=== PATIENT | female | born 1995 | race Asian ===

== ENCOUNTER 2023-01-10 11:14 | Emergency (ER) | payer OTHER, SELFPAY ==
[2023-01-10 11:18] VITALS: BP 126/81; PULSE 76; RESP 18; TEMP 36.6; O2SAT 100; BMI 34.4
--- NOTE | 2023-01-10 11:23 | DI.RAD.S_ITS ---
PROCEDURE: XR CHEST 1V INDICATIONS: chest pain TECHNIQUE: One view of the chest was acquired. COMPARISON: None. FINDINGS: Surgical changes and devices: None. Lungs and pleura: Lungs are clear. No pleural effusions or pneumothorax. Mediastinum: Mediastinal contours appear normal. Heart size is normal. Bones and chest wall: No suspicious bony lesions. Overlying soft tissues appear unremarkable. IMPRESSION: No acute cardiopulmonary abnormality. Dictated by: Bethel Guzman M.D. on 01/10/2023 at 12:42 Approved by: Bethel Guzman M.D. on 01/10/2023 at 12:46
[2023-01-10 11:50] LABS: Add Manual Diff / Slide Review NO; Basophils Absolute Auto 100 /uL (0-100); Basophils Percent Auto 0.9 % (0-2); Eosinophils Absolute Auto 200 /uL (0-450); Eosinophils Percent Auto 2.9 % (2-4); Hematocrit 41.1 % (36-46); Hemoglobin 13.7 g/dL (12.0-16.0); Lymphocytes Absolute Auto 2800 /uL (1100-4500); Lymphocytes Percent Auto 32.9 % (25-40); Mean Corpuscular HGB Conc 33.4 % (30-36); Mean Corpuscular Hemoglobin 29.1 PG (26-34); Mean Corpuscular Volume 87.1 fL (80-100); Monocytes Absolute Auto 500 /uL (0-900); Monocytes Percent Auto 5.5 % (3-14); Neutrophils Absolute Auto 4900 /uL (1500-7000); Neutrophils Percent Auto 57.8 % (50-75); Platelet Count 327 X10^3/uL (150-400); Red Blood Cell Count 4.71 X10^6/uL (4.0-5.2); Red Cell Distribution Width 13.3 % (11.6-14.8); White Blood Cell Count 8.5 X10^3/uL (4.5-11.0)
[2023-01-10 11:55] LABS: INR 1.1 (0.9-1.3); Prothrombin Time 12.5 SECONDS (10.1-12.7)
[2023-01-10 11:57] LABS: PTT Partial Thromboplastin Tim 34 SECONDS (26-36)
[2023-01-10 12:01] LABS: Alanine Aminotransferase 56 IU/L (<35); Albumin 4.7 g/dL (3.5-5.0); Albumin Globulin Ratio 1.3 (1.0-2.8); Alkaline Phosphatase 86 U/L (38-126); Aspartate Aminotransferase 41 IU/L (14-36); BUN Creatinine Ratio 13.6 (6-22); Bilirubin Total 0.7 mg/dL (0.2-1.3); Blood Urea Nitrogen 8 mg/dL (7-17); Calcium 9.1 mg/dL (8.4-10.2); Carbon Dioxide 27 mmol/L (22-32); Chloride 102 mmol/L (98-107); Creatine Kinase 169 U/L (30-135); Estimated Glomerular Filt Rate > 60 mL/min (>60); Globulin 3.7 g/dL (1.7-4.1); Glucose 95 mg/dL (70-100); HEMOLYSIS < 15 (0-50); Lipase 73 U/L (23-300); Magnesium 2.3 mg/dL (1.6-2.3); Sodium 138 mmol/L (137-145); Total Protein 8.4 g/dL (6.3-8.2)
[2023-01-10 12:11] LABS: Troponin I < 0.012 ng/mL (0.01-0.034)
[2023-01-10 12:54] VITALS: BP 122/62; PULSE 81; O2SAT 98
[2023-01-10 13:39] LABS: Thyroid Stimulating Hormone 0.499 uIU/mL (0.47-4.68)
[2023-01-10 14:10] LABS: Free T4, Direct Thyroxine 1.16 ng/dL (0.78-2.19)
[2023-01-10 14:23] VITALS: BP 113/64; PULSE 75; O2SAT 100
--- NOTE | 2023-01-10 14:36 | ED.CHESTPAIN ---
HPI - Chest Pain <Shereen Rosales PA-C - Last Filed: 01/10/23 14:43> General Chief Complaint: Chest Pain Stated Complaint: Chest pain, heart issues, sent from PCP Time Seen by Provider: 01/10/23 12:46 Source: patient Mode of arrival: Ambulatory Limitations: no limitations History of Present Illness HPI narrative: 27-year-old female with past medical history hyperthyroidism, anxiety, depression presents to the ED with 2 weeks of chest heaviness and palpitations. Patient states she has a history of hyperthyroidism for which she is on metoprolol, methimazole. Patient is also on Zoloft for anxiety and depression. Patient is compliant with her medications. Patient was seen by her PCP this morning, was sent to the ED for further evaluation. Patient denies fever, chills, shortness of breath, cough, nausea, vomiting, lightheadedness, dizziness, syncope. Related Data Home Medications Medication Instructions Recorded Confirmed loratadine 10 mg tablet (Claritin) 10 mg PO QDAY ##0 08/08/17 norethindrone acetate 5 mg tablet 5 mg PO QDAY ##0 08/08/17 ranitidine HCl 150 mg tablet PO QDAY ##0 08/08/17 (Zantac) Previous Rx's Medication Instructions Recorded hydrocodone 5 mg-acetaminophen 325 1 tab PO Q4HP PRN #10 tabs 08/08/17 mg tablet ([place]) hydroxyzine HCl 25 mg tablet 25 mg PO TID PRN anxiety 4 days 01/10/23 #14 tabs Allergies Allergy/AdvReac Type Severity Reaction Status Date / Time ibuprofen [IBUPROFEN] Allergy Unknown HIVES Unverified 09/13/17 12:51 Review of Systems <Shereen Rosales PA-C - Last Filed: 01/10/23 14:43> Review of Systems ROS Unobtainable: All systems reviewed & are unremarkable except as noted in HPI and below Constitutional Constitutional: Denies chills, Denies fatigue, Denies fever(s), Denies frequent falls, Denies lethargy and Denies weakness Eyes Eyes: Denies change in vision, Denies eye discharge, Denies irritation and Denies loss of vision ENT Ears, Nose, Mouth, and Throat: Denies change in voice, Denies dizziness, Denies neck pain, Denies sore throat and Denies throat swelling Cardiovascular Cardiovascular: Reports chest pain, Denies irregular heart rhythm, Denies lightheadedness, Reports palpitations, Denies dyspnea, Denies dyspnea on exertion and Denies orthopnea Respiratory Respiratory: Denies cough, Denies dyspnea, Denies dyspnea on exertion and Denies wheezing Gastrointestinal Gastrointestinal: Denies abdominal pain, Denies change in bowel habits, Denies diarrhea, Denies nausea and Denies vomiting Genitourinary Genitourinary: Denies hematuria, Denies flank pain, Denies urinary incontinence and Denies urinary urgency Musculoskeletal Musculoskeletal: Denies back pain, Denies muscle weakness, Denies neck pain, Denies numbness and Denies tingling Integumentary/Breasts Skin/Breast: Denies pruritus, Denies erythema, Denies rash and Denies wounds Neurologic Neurologic: Denies behavioral changes, Denies confusion, Denies dizziness, Denies frequent falls, Denies loss of vision, Denies numbness, Denies tingling and Denies weakness Psychiatric Psychiatric: Denies anxiety, Denies behavioral changes, Denies confusion, Denies depression, Denies homicidal ideation and Denies suicidal ideation Endocrine Endocrine: Denies fatigue, Denies flushing and Reports palpitations Hematologic/Lymphatic Hematologic/Lymphatic: Denies easy bruising Allergic/Immunologic Allergic/Immunologic: Denies urticaria, Denies throat swelling and Denies wheezing Patient History <Shereen Rosales PA-C - Last Filed: 01/10/23 14:43> Social History Smoking Status: Current some day smoker Smoking Status: Current some day smoker tobacco type: vaping Substance Use Type: does not use Exam <Shereen Rosales PA-C - Last Filed: 01/10/23 14:43> Narrative Exam Narrative: Const General:?cooperative, healthy appearing and comfortable [facility] Head:?normal to inspection Ears:?hearing grossly normal bilaterally Nose:?external nose normal Face and sinus:?normal facial exam and sinuses nontender Mouth:?oral mucosae normal Throat:?posterior oropharynx normal Eyes General:?appearance normal, both eyes and all related structures Neck Neck:?normal visual inspection and no lymphadenopathy noted Resp Effort & Inspection:?normal respiratory effort Auscultation:?clear to auscultation bilaterally Cardio Rate:?regular rate Rhythm:?regular rhythm Neuro General:?patient alert, patient awake and patient oriented x3 Initial Vital Signs Initial Vital Signs: Vital Signs Temperature 98 F 01/10/23 11:18 Pulse Rate 76 01/10/23 11:18 Respiratory Rate 18 01/10/23 11:18 Blood Pressure 126/81 01/10/23 11:18 Pulse Oximetry 100 01/10/23 11:18 Oxygen Delivery Method Room Air 01/10/23 11:18 <DO Jonathan Jc Last Filed: 01/12/23 08:14> Initial Vital Signs Initial Vital Signs: Vital Signs Temperature 98 F 01/10/23 11:18 Pulse Rate 76 01/10/23 11:18 Respiratory Rate 18 01/10/23 11:18 Blood Pressure 126/81 01/10/23 11:18 Pulse Oximetry 100 01/10/23 11:18 Oxygen Delivery Method Room Air 01/10/23 11:18 Course <MY Hammer Last Filed: 01/10/23 14:43> Orders Ordered: ED Orders 01/10/23 11:23 XR chest 1V Stat 01/10/23 11:32 EKG-12 Lead Stat 01/10/23 11:37 Complete Blood Count AUTO DIFF Stat Comprehensive Metabolic Panel Stat Free T4, Direct Thyroxine Stat Lipase Stat Magnesium Stat PTT Partial Thromboplastin Nino Stat Prothrombin Time INR Stat TSH [Thyroid Stimulating Hormone] Stat Troponin & CK Cardiac Panel Stat Vital Signs Vital signs: Vital Signs - 8 hr 01/10/23 11:18 01/10/23 12:54 01/10/23 14:23 Temperature 98 F Pulse Rate 76 81 75 Respiratory Rate 18 Blood Pressure 126/81 122/62 113/64 Pulse Oximetry 100 98 100 Oxygen Delivery Method Room Air Room Air Room Air <DO Jonathan Jc Last Filed: 01/12/23 08:14> Orders Ordered: ED Orders 01/10/23 11:23 XR chest 1V Stat 01/10/23 11:32 EKG-12 Lead Stat 01/10/23 11:37 Complete Blood Count AUTO DIFF Stat Comprehensive Metabolic Panel Stat Free T4, Direct Thyroxine Stat Lipase Stat Magnesium Stat PTT Partial Thromboplastin Nino Stat Prothrombin Time INR Stat TSH [Thyroid Stimulating Hormone] Stat Troponin & CK Cardiac Panel Stat Vital Signs Vital signs: Vital Signs - 8 hr 01/10/23 11:18 01/10/23 12:54 08/08/23 14:23 Temperature 98 F Pulse Rate 76 81 75 Respiratory Rate 18 Blood Pressure 126/81 122/62 113/64 Pulse Oximetry 100 98 100 Oxygen Delivery Method Room Air Room Air Room Air MDM - Chest Pain <Shereen Rosales PA-C - Last Filed: 01/10/23 14:43> Lab Data 01/10/23 11:37 01/10/23 11:37 Labs: Lab Results 01/10/23 01/10/23 01/10/23 Range/Units 11:37 11:37 11:37 WBC 8.5 (4.5-11.0) X10^3/uL RBC 4.71 (4.0-5.2) X10^6/uL Hgb 13.7 (12.0-16.0) g/dL Hct 41.1 (36-46) % MCV 87.1 (80-100) fL MCH 29.1 (26-34) PG MCHC 33.4 (30-36) % RDW 13.3 (11.6-14.8) % Plt Count 327 (150-400) X10^3/uL Neut % (Auto) 57.8 (50-75) % Lymph % (Auto) 32.9 (25-40) % [place] % (Auto) 5.5 (3-14) % Eos % (Auto) 2.9 (2-4) % Baso % (Auto) 0.9 (0-2) % Neut # (Auto) 4900 (4349-1489) /uL Lymph # (Auto) 2800 (4747-6241) /uL [place] # (Auto) 500 (0-900) /uL Eos # (Auto) 200 (0-450) /uL Baso # (Auto) 100 (0-100) /uL PT 12.5 (10.1-12.7) SECONDS INR 1.1 (0.9-1.3) APTT 34 (26-36) SECONDS Sodium 138 (137-145) mmol/L Potassium 4.0 (3.4-5.1) mmol/L Chloride 102 (98-107) mmol/L Carbon Dioxide 27 (22-32) mmol/L BUN 8 (7-17) mg/dL Creatinine 0.59 (0.52-1.04) mg/dL Estimated GFR > 60 (>60) mL/min BUN/Creatinine Ratio 13.6 (6-22) Glucose 95 (70-100) mg/dL Calcium 9.1 (8.4-10.2) mg/dL Magnesium 2.3 (1.6-2.3) mg/dL Total Bilirubin 0.7 (0.2-1.3) mg/dL AST 41 H (14-36) IU/L ALT 56 H (<35) IU/L Alkaline Phosphatase 86 (38-126) U/L Total Creatine Kinase 169 H (30-135) U/L Troponin I < 0.012 (0.01-0.034) ng/mL Total Protein 8.4 H (6.3-8.2) g/dL Albumin 4.7 (3.5-5.0) g/dL Globulin 3.7 (1.7-4.1) g/dL Albumin/Globulin Ratio 1.3 (1.0-2.8) Lipase 73 (23-300) U/L TSH (0.47-4.68) uIU/mL Free T4 (0.78-2.19) ng/dL /01/25 Range/Units 11:37 WBC (4.5-11.0) X10^3/uL RBC (4.0-5.2) X10^6/uL Hgb (12.0-16.0) g/dL Hct (36-46) % MCV (80-100) fL MCH (26-34) PG MCHC (30-36) % RDW (11.6-14.8) % Plt Count (150-400) X10^3/uL Neut % (Auto) (50-75) % Lymph % (Auto) (25-40) % [place] % (Auto) (3-14) % Eos % (Auto) (2-4) % Baso % (Auto) (0-2) % Neut # (Auto) (0399-8783) /uL Lymph # (Auto) (8021-7278) /uL [place] # (Auto) (0-900) /uL Eos # (Auto) (0-450) /uL Baso # (Auto) (0-100) /uL PT (10.1-12.7) SECONDS INR (0.9-1.3) APTT (26-36) SECONDS Sodium (137-145) mmol/L Potassium (3.4-5.1) mmol/L Chloride (98-107) mmol/L Carbon Dioxide (22-32) mmol/L BUN (7-17) mg/dL Creatinine (0.52-1.04) mg/dL Estimated GFR (>60) mL/min BUN/Creatinine Ratio (6-22) Glucose (70-100) mg/dL Calcium (8.4-10.2) mg/dL Magnesium (1.6-2.3) mg/dL Total Bilirubin (0.2-1.3) mg/dL AST (14-36) IU/L ALT (<35) IU/L Alkaline Phosphatase (38-126) U/L Total Creatine Kinase (30-135) U/L Troponin I (0.01-0.034) ng/mL Total Protein (6.3-8.2) g/dL Albumin (3.5-5.0) g/dL Globulin (1.7-4.1) g/dL Albumin/Globulin Ratio (1.0-2.8) Lipase (23-300) U/L TSH 0.499 (0.47-4.68) uIU/mL Free T4 1.16 (0.78-2.19) ng/dL Point of Care Testing Test Results Negative Urine Dip Bedside Urine Glucose Negative Bedside Urine Bilirubin - Negative Bedside Urine Ketone - Negative Urine Specific [place] 1.020 Bedside Urine Occult Blood ++ Bedside Urine pH 6.0 Bedside Urine Protein - Negative Bedside Urine Urobilinogen - Negative Bedside Urine Nitrite - Negative Bedside Urine Leukocytes +/- 15 Esterase MDM Narrative Medical decision making narrative: 27-year-old female with past medical history hyperthyroidism, anxiety, depression presents to the ED with 2 weeks of chest heaviness and palpitations. EKG, chest x-ray, labs, troponin, TSH, T4 within normal limits. EKG shows normal sinus rhythm with sinus arrhythmia. Vitals within normal limits. Patient's symptoms most likely due to a flare-up of anxiety or acid reflux. Recommend a trial of Pepcid AC, hydroxyzine. Recommend follow-up with PCP as soon as possible for further evaluation. ED return precautions were discussed with patient. Patient verbalized understanding. Medical records reviewed: Yes <Tatiana Flores, DO - Last Filed: 01/12/23 08:14> Lab Data Labs: Lab Results 01/10/23 01/10/23 01/10/23 Range/Units 11:37 11:37 11:37 WBC 8.5 (4.5-11.0) X10^3/uL RBC 4.71 (4.0-5.2) X10^6/uL Hgb 13.7 (12.0-16.0) g/dL Hct 41.1 (36-46) % MCV 87.1 (80-100) fL MCH 29.1 (26-34) PG MCHC 33.4 (30-36) % RDW 13.3 (11.6-14.8) % Plt Count 327 (150-400) X10^3/uL Neut % (Auto) 57.8 (50-75) % Lymph % (Auto) 32.9 (25-40) % [place] % (Auto) 5.5 (3-14) % Eos % (Auto) 2.9 (2-4) % Baso % (Auto) 0.9 (0-2) % Neut # (Auto) 4900 (0801-9462) /uL Lymph # (Auto) 2800 (4448-5740) /uL [place] # (Auto) 500 (0-900) /uL Eos # (Auto) 200 (0-450) /uL Baso # (Auto) 100 (0-100) /uL PT 12.5 (10.1-12.7) SECONDS INR 1.1 (0.9-1.3) APTT 34 (26-36) SECONDS Sodium 138 (137-145) mmol/L Potassium 4.0 (3.4-5.1) mmol/L Chloride 102 (98-107) mmol/L Carbon Dioxide 27 (22-32) mmol/L BUN 8 (7-17) mg/dL Creatinine 0.59 (0.52-1.04) mg/dL Estimated GFR > 60 (>60) mL/min BUN/Creatinine Ratio 13.6 (6-22) Glucose 95 (70-100) mg/dL Calcium 9.1 (8.4-10.2) mg/dL Magnesium 2.3 (1.6-2.3) mg/dL Total Bilirubin 0.7 (0.2-1.3) mg/dL AST 41 H (14-36) IU/L ALT 56 H (<35) IU/L Alkaline Phosphatase 86 (38-126) U/L Total Creatine Kinase 169 H (30-135) U/L Troponin I < 0.012 (0.01-0.034) ng/mL Total Protein 8.4 H (6.3-8.2) g/dL Albumin 4.7 (3.5-5.0) g/dL Globulin 3.7 (1.7-4.1) g/dL Albumin/Globulin Ratio 1.3 (1.0-2.8) Lipase 73 (23-300) U/L TSH (0.47-4.68) uIU/mL Free T4 (0.78-2.19) ng/dL 01/10/23 Range/Units 11:37 WBC (4.5-11.0) X10^3/uL RBC (4.0-5.2) X10^6/uL Hgb (12.0-16.0) g/dL Hct (36-46) % MCV (80-100) fL MCH (26-34) PG MCHC (30-36) % RDW (11.6-14.8) % Plt Count (150-400) X10^3/uL Neut % (Auto) (50-75) % Lymph % (Auto) (25-40) % [place] % (Auto) (3-14) % Eos % (Auto) (2-4) % Baso % (Auto) (0-2) % Neut # (Auto) (5335-3107) /uL Lymph # (Auto) (6366-5974) /uL [place] # (Auto) (0-900) /uL Eos # (Auto) (0-450) /uL Baso # (Auto) (0-100) /uL PT (10.1-12.7) SECONDS INR (0.9-1.3) APTT (26-36) SECONDS Sodium (137-145) mmol/L Potassium (3.4-5.1) mmol/L Chloride (98-107) mmol/L Carbon Dioxide (22-32) mmol/L BUN (7-17) mg/dL Creatinine (0.52-1.04) mg/dL Estimated GFR (>60) mL/min BUN/Creatinine Ratio (6-22) Glucose (70-100) mg/dL Calcium (8.4-10.2) mg/dL Magnesium (1.6-2.3) mg/dL Total Bilirubin (0.2-1.3) mg/dL AST (14-36) IU/L ALT (<35) IU/L Alkaline Phosphatase (38-126) U/L Total Creatine Kinase (30-135) U/L Troponin I (0.01-0.034) ng/mL Total Protein (6.3-8.2) g/dL Albumin (3.5-5.0) g/dL Globulin (1.7-4.1) g/dL Albumin/Globulin Ratio (1.0-2.8) Lipase (23-300) U/L TSH 0.499 (0.47-4.68) uIU/mL Free T4 1.16 (0.78-2.19) ng/dL Point of Care Testing Test Results Negative Urine Dip Bedside Urine Glucose Negative Bedside Urine Bilirubin - Negative Bedside Urine Ketone - Negative Urine Specific [place] 1.020 Bedside Urine Occult Blood ++ Bedside Urine pH 6.0 Bedside Urine Protein - Negative Bedside Urine Urobilinogen - Negative Bedside Urine Nitrite - Negative Bedside Urine Leukocytes +/- 15 Esterase Discharge Plan Departure Patient Disposition: Home Clinical Impression: Atypical chest pain Instructions: DI for Atypical Chest Pain Activity Restrictions/Additional Instructions: You were evaluated in the ED today for chest tightness. Your EKG, chest x-ray, labs, thyroid tests were normal. It is possible that your symptoms might be caused due to either acid reflux or anxiety. You may trial Pepcid AC twice daily for the next 2-4 weeks. You may also try hydroxyzine for anxiety for the next few days. Please follow-up with your PCP as soon as possible. Return to the ED if you have worsening symptoms, chest pain, shortness of breath. Prescriptions: New hydroxyzine HCl 25 mg tablet 25 mg PO TID PRN (Reason: anxiety) 4 Days Qty: 14 0RF No Action ranitidine HCl [Zantac] 150 mg tablet PO QDAY Qty: 0 loratadine [Claritin] 10 MG tablet 10 mg PO QDAY Qty: 0 norethindrone acetate 5 MG tablet 5 mg PO QDAY Qty: 0 hydrocodone-acetaminophen [[place]] 5 MG/325 MG tablet 1 tab PO Q4HP PRNQty: 10 0RF Stand Alone Forms: Patient Portal/API <Tatiana Flores DO - Last Filed: 01/12/23 08:14> Cosign ED Attending Costrature Attestation: I was immediately available in the department for consultation. Documentation has been reviewed.
== END 2023-01-10 14:40 | disposition home or self-care (01) ==
PROVIDERS: Emergency Medicine; Emergency Provider Student in an Organized Health Care Education/Training Program; Family Provider General Practice
DX: R07.89 Other chest pain (principal); R00.2 Palpitations
CPT/HCPCS: 36415; 71045; 80053; 81003; 81025; 82550; 83690; 83735; 84439; 84443; 84484; 85025; 85610; 85730; 93005; 93010; 99282; 99284

== ENCOUNTER 2024-08-06 17:28 | Emergency (ER) | payer OTHER, SELFPAY ==
[2024-08-06 17:32] VITALS: BP 117/57; PULSE 76; RESP 16; TEMP 36.6; O2SAT 99; BMI 29.9
--- NOTE | 2024-08-06 18:00 | ED.URI ---
HPI - URI/Sore Throat General Chief Complaint: Upper Respiratory Symptoms Stated Complaint: SKYfunmilayo Time Seen by Provider: 08/06/24 17:46 History of Present Illness HPI Narrative: 29-year-old female with past medical history hyperthyroidism, anxiety, depression, migraines presents to the ED with 3 days of fatigue, headache, occasional cough, nausea, vomiting. Patient had 2 episodes of vomiting earlier today. Patient has a history of migraine for which did takes sumatriptan. Patient did take some sumatriptan earlier today without any relief. Patient states that her doctor had called her to let her know that her thyroid numbers were higher, for which she is following up with her supervisor quilting. No fever, chills, chest pain, shortness of breath, lightheadedness, dizziness, syncope. Related Data Home Medications Medication Instructions Recorded Confirmed loratadine 10 mg tablet (Claritin) 10 mg PO QDAY ##0 08/08/17 norethindrone acetate 5 mg tablet 5 mg PO QDAY ##0 08/08/17 ranitidine HCl 150 mg tablet PO QDAY ##0 08/08/17 (Zantac) Previous Rx's Medication Instructions Recorded hydrocodone 5 mg-acetaminophen 325 1 tab PO Q4HP PRN #10 tabs 08/08/17 mg tablet ([place]) Allergies Allergy/AdvReac Type Severity Reaction Status Date / Time ibuprofen [IBUPROFEN] Allergy Unknown HIVES Unverified 09/13/17 12:51 Review of Systems Constitutional Constitutional: Denies chills, Denies fatigue, Denies fever(s), Denies frequent falls, Reports headache(s), Denies lethargy and Reports weakness Eyes Eyes: Denies change in vision, Denies eye discharge, Denies irritation and Denies loss of vision ENT Ears, Nose, Mouth, and Throat: Denies change in voice, Denies dizziness, Reports headache(s), Denies neck pain, Denies sore throat and Denies throat swelling Cardiovascular Cardiovascular: Denies chest pain, Denies irregular heart rhythm, Denies lightheadedness, Denies palpitations, Denies dyspnea, Denies dyspnea on exertion and Denies orthopnea Respiratory Respiratory: Reports cough, Denies dyspnea, Denies dyspnea on exertion and Denies wheezing Gastrointestinal Gastrointestinal: Denies abdominal pain, Denies change in bowel habits, Denies diarrhea, Reports nausea and Reports vomiting Musculoskeletal Musculoskeletal: Denies neck pain and Denies numbness Integumentary/Breasts Skin/Breast: Denies pruritus, Denies erythema, Denies rash and Denies wounds Neurologic Neurologic: Denies behavioral changes, Denies confusion, Denies dizziness, Denies frequent falls, Reports headache(s), Denies loss of vision, Denies numbness and Reports weakness Psychiatric Psychiatric: Denies anxiety, Denies behavioral changes, Denies confusion, Denies depression, Denies homicidal ideation and Denies suicidal ideation Endocrine Endocrine: Denies fatigue, Denies flushing and Denies palpitations Hematologic/Lymphatic Hematologic/Lymphatic: Denies easy bruising Allergic/Immunologic Allergic/Immunologic: Denies urticaria, Denies throat swelling and Denies wheezing Patient History Social History Smoking Status: Current some day smoker Smoking Status: Current some day smoker tobacco type: vaping Exam Narrative Exam Narrative: Const General:?cooperative, healthy appearing and comfortable [facility] Head:?normal to inspection Ears:?hearing grossly normal bilaterally Nose:?external nose normal Face and sinus:?normal facial exam and sinuses nontender Mouth:?oral mucosae normal Throat:?posterior oropharynx normal Eyes General:?appearance normal, both eyes and all related structures Neck Neck:?normal visual inspection and no lymphadenopathy noted Resp Effort & Inspection:?normal respiratory effort Auscultation:?clear to auscultation bilaterally Cardio Rate:?regular rate Rhythm:?regular rhythm Neuro General:?patient alert, patient awake and patient oriented x3 Initial Vital Signs Initial Vital Signs: Vital Signs Temperature 97.8 F 08/06/24 17:32 Pulse Rate 76 08/06/24 17:32 Respiratory Rate 16 08/06/24 17:32 Blood Pressure 117/57 L 08/06/24 17:32 Pulse Oximetry 99 08/06/24 17:32 Oxygen Delivery Method Room Air 08/06/24 17:32 Course Orders Ordered: ED Orders 08/06/24 17:59 Covid-19 + FLU A/B + RSV - PCR Stat Discontinued Medications Acetaminophen (Acetaminophen 325 Mg Tablet) 975 mg PO NOW ONE Stop: 08/06/24 17:57 Last Admin: 08/06/24 18:05 Dose: 975 mg Documented By: EDUARD Diphenhydramine HCl (Diphenhydramine 25 Mg Tablet) 25 mg PO NOW ONE Stop: 08/06/24 17:57 Last Admin: 08/06/24 18:05 Dose: 25 mg Documented By: EDUARD Metoclopramide HCl (Metoclopramide Hcl 5 Mg Tablet) 10 mg PO NOW ONE Stop: 08/06/24 17:57 Last Admin: 08/06/24 18:08 Dose: 10 mg Documented By: EDUARD Vital Signs Vital signs: Vital Signs - 8 hr 08/06/24 17:32 Temperature 97.8 F Pulse Rate 76 Respiratory Rate 16 Blood Pressure 117/57 L Pulse Oximetry 99 Oxygen Delivery Method Room Air MDM - URI/Sore Throat Lab Data Labs: Lab Results 08/06/24 Range/Units 17:59 SARS-CoV-2 (PCR) Negative (Negative) Influenza A (RT-PCR) Flu a negative (NEGATIVE) Influenza B (RT-PCR) Flu b negative (NEGATIVE) RSV (PCR) Negative (Negative) MDM Narrative Medical decision making narrative: 29-year-old female with past medical history hyperthyroidism, anxiety, depression, migraines presents to the ED with 3 days of fatigue, headache, occasional cough, nausea, vomiting. Concern for URI versus gastroenteritis versus migraine versus other. Patient is not exhibiting any signs or symptoms of thyroid storm. Will obtain respiratory panel. Will treat headache. Will reassess. Patient's symptoms improved with medications. Respiratory panel negative. Recommend continued supportive care. Recommend follow-up with PCP, supervisor quilting as soon as possible. ED return precautions discussed with patient. Patient verbalized understanding. Medical records reviewed: Yes Discharge Plan Departure Patient Disposition: Home Clinical Impression: Headache Qualifiers: Headache type: unspecified Headache chronicity pattern: acute headache Intractability: not intractable Qualified Code(s): R51.9 - Headache, unspecified Instructions: DI for Headache Activity Restrictions/Additional Instructions: You were evaluated in the ED today for a headache. Your symptoms improved with Reglan, Tylenol, Benadryl. We will call you if your respiratory panel is positive. Please stay well hydrated and continue to take Tylenol and sumatriptan for headaches. If you feel any upper respiratory symptoms, feel free to take any [id number] cough and cold medicines. Please follow-up with your PCP and supervisor quilting as soon as possible. Return to the ED if you have worsening symptoms Prescriptions: No Action ranitidine HCl [Zantac] 150 mg tablet PO QDAY Qty: 0 loratadine [Claritin] 10 MG tablet 10 mg PO QDAY Qty: 0 norethindrone acetate 5 MG tablet 5 mg PO QDAY Qty: 0 hydrocodone-acetaminophen [[place]] 5 MG/325 MG tablet 1 tab PO Q4HP PRNQty: 10 0RF Referrals: ProviderZoraida [Primary Care Provider] - Stand Alone Forms: Patient Portal/API/Survey
[2024-08-06] MEDS: diphenhydrAMINE 25 MG TABLET PO (18:05)
[2024-08-06] MEDS: ACETAMINOPHEN 325 MG TABLET 975 MG PO (18:05)
[2024-08-06] MEDS: METOCLOPRAMIDE HCL 5 MG TABLET 10 MG PO (18:08)
[2024-08-06 18:43] LABS: Influenza A - CEPHEID Flu A NEGATIVE (NEGATIVE); Influenza B - CEPHEID Flu B NEGATIVE (NEGATIVE); Respiratory Syncytial Virus Negative (Negative)
[2024-08-06 18:44] LABS: COVID-19 CEPHEID 4-PLEX PCR Negative (Negative)
[2024-08-06 18:57] VITALS: BP 116/55; PULSE 74; RESP 16; O2SAT 99
== END 2024-08-06 18:58 | disposition home or self-care (01) ==
PROVIDERS: Emergency Provider Student in an Organized Health Care Education/Training Program; Family Provider General Practice
DX: R51.9 Headache, unspecified (principal); R53.83 Other fatigue; R11.2 Nausea with vomiting, unspecified; R05.9 Cough, unspecified
CPT/HCPCS: 0241U; 99283

== ENCOUNTER 2024-10-16 10:28 | Emergency (ER) | payer OTHER, SELFPAY ==
[2024-10-16 10:32] VITALS: BP 130/68; PULSE 88; RESP 13; TEMP 36.5; O2SAT 99; BMI 30.5
[2024-10-16 10:35] VITALS: PULSE 88; O2SAT 99
[2024-10-16 10:36] VITALS: BP 130/68; PULSE 85; O2SAT 99
[2024-10-16 11:00] VITALS: BP 113/56; PULSE 84; O2SAT 98
--- NOTE | 2024-10-16 11:17 | ED_ITS ---
HPI - Nausea/Vomiting/Diarrhea <Carly Matthews PA-C - Last Filed: 10/16/24 14:06> General Chief complaint: Nausea/Vomiting/Diarrhea Stated complaint: Severe Nausea x 7 days Time Seen by Provider: 10/16/24 11:17 Source: patient Mode of arrival: Ambulatory History of Present Illness HPI Narrative: Ms. Will is a very pleasant , currently 7 weeks on progesterone, female with a past medical history of hyperthyroidism on PTU, endometriosis, anxiety/depression, 3 prior miscarriages who presents to the emergency department for nausea/vomiting in x1 week. Patient states over the last week she has been constantly nauseated with some epigastric discomfort that she describes as a ?cool? sensation and difficulty keeping down both fluids and solids. Patient states the nausea and vomiting is exacerbated by eating and drinking and also by moving around, and is improved by lying still. She denies having this severe nausea or vomiting with prior pregnancies. She is currently following with OBGYN Dr. Maury Reagan with [facility], they have prescribed her Unisom and B6 which has not been working and they are in the process of setting her up for scheduled Zofran and effusions but they recommend she come to the ER until this can be scheduled. She denies any abdominal pain, pelvic cramping, vaginal bleeding vaginal discharge, dysuria, hematuria, flank pain, shortness of breath, fevers, chills, sore throat, cough. She does report that her urine is dark however. She denies diarrhea or constipation but states she has not had a bowel movement in about 3 days because she has not been eating. Related Data Home Medications Medication Instructions Recorded Confirmed loratadine 10 mg tablet (Claritin) 10 mg PO QDAY ##0 08/08/17 norethindrone acetate 5 mg tablet 5 mg PO QDAY ##0 08/08/17 ranitidine HCl 150 mg tablet PO QDAY ##0 08/08/17 (Zantac) Previous Rx's Medication Instructions Recorded hydrocodone 5 mg-acetaminophen 325 1 tab PO Q4HP PRN #10 tabs 08/08/17 mg tablet ([place]) cephalexin 500 mg capsule 500 mg PO TID 4 days #12 caps 10/16/24 Allergies Allergy/AdvReac Type Severity Reaction Status Date / Time ibuprofen [IBUPROFEN] Allergy Unknown HIVES Verified 10/16/24 10:38 Review of Systems <Carly Matthews PA-C - Last Filed: 10/16/24 14:06> Review of Systems ROS Unobtainable: All systems reviewed & are unremarkable except as noted in HPI and below Patient History <Carly Matthews PA-C - Last Filed: 10/16/24 14:06> Social History Smoking Status: Unknown if ever smoked Smoking Status: Unknown if ever smoked tobacco type: vaping Exam <Carly Matthews PA-C - Last Filed: 10/16/24 14:06> Narrative Exam Narrative: GENERAL: 29 year old patient appears stated age. Well-developed patient, in no acute distress. HEAD: Atraumatic. Normocephalic. EYES: No scleral icterus. No injection or drainage. NECK: Trachea midline. Cervical ROM intact. CARDIOVASCULAR: Regular rate and rhythm. RESPIRATORY: ?Nonlabored respirations. ?Speaking in clear, full sentences. ?Clear to auscultation. Breath sounds equal bilaterally. No wheezes, rales, or rhonchi. ? GASTROINTESTINAL: Abdomen soft, non-tender, nondistended. Bowel sounds present. No rebound, guarding or rigidity. EXTREMITIES: No edema or joint tenderness. NEURO: AOx3. ?Clear speech. ?Moves all 4 extremities appropriately. SKIN: No rash or erythema of visible areas. There are scattered ?bug bites? on the patient's abdomen. Initial Vital Signs Initial Vital Signs: Vital Signs Temperature 97.7 F 10/16/24 10:32 Pulse Rate 88 10/16/24 10:32 Respiratory Rate 10/16/24 10:32 Blood Pressure 130/68 10/16/24 10:32 Pulse Oximetry 99 10/16/24 10:32 Oxygen Delivery Method Room Air 10/16/24 10:32 <Tatiana Flores DO - Last Filed: 10/18/24 10:22> Initial Vital Signs Initial Vital Signs: Vital Signs Temperature 97.7 F 10/16/24 10:32 Pulse Rate 88 10/16/24 10:32 Respiratory Rate 13 10/16/24 10:32 Blood Pressure 130/68 10/16/24 10:32 Pulse Oximetry 99 10/16/24 10:32 Oxygen Delivery Method Room Air 10/16/24 10:32 Course <Carly Matthews PA-C - Last Filed: 10/16/24 14:06> Orders Ordered: Discontinued Medications Diphenhydramine HCl (Diphenhydramine 50 Mg/Ml Vial) 25 mg IV NOW ONE Stop: 10/16/24 11:21 Last Admin: 10/16/24 11:29 Dose: 25 mg Documented By: CTS Sodium Chloride (Normal Saline 0.9%) 1,000 mls @ 1,000 mls/hr IV BOLUS ONE Stop: 10/16/24 12:17 Last Infusion: 10/16/24 12:43 Dose: Infused Documented By: Admin: 10/16/24 11:29 Dose: 1,000 mls/hr Documented By: CTS Sodium Chloride (Normal Saline 0.9%) 1,000 mls @ 1,000 mls/hr IV BOLUS ONE Stop: 10/16/24 13:44 Last Infusion: 10/16/24 13:58 Dose: Infused Documented By: Admin: 10/16/24 12:53 Dose: 1,000 mls/hr Documented By: YAZMIN Metoclopramide HCl (Metoclopramide 10 Mg/2 Ml Inj) 5 mg IV NOW ONE Stop: 10/16/24 11:19 Last Admin: 10/16/24 11:29 Dose: 5 mg Documented By: YAZMIN Ondansetron HCl (Ondansetron 4 Mg/2 Ml Inj) 4 mg IV NOW PRN PRN Reason: Nausea And Vomiting Last Admin: 10/16/24 12:53 Dose: 4 mg Documented By: YAZMIN Ondansetron HCl (Ondansetron 4 Mg Odt) 4 mg PO NOW PRN PRN Reason: Nausea And Vomiting Vital Signs Vital signs: Vital Signs - 8 hr 10/16/24 10:32 10/16/24 10:35 10/16/24 10:36 Temperature 97.7 F Pulse Rate 88 88 Respiratory Rate 13 Blood Pressure 130/68 130/68 Pulse Oximetry 99 99 Oxygen Delivery Method Room Air 10/16/24 10:36 10/16/24 11:00 10/16/24 11:00 Temperature Pulse Rate 85 84 Respiratory Rate Blood Pressure 113/56 L Pulse Oximetry 99 98 Oxygen Delivery Method <Tatiana Flores DO - Last Filed: 10/18/24 10:22> Orders Ordered: Discontinued Medications Diphenhydramine HCl (Diphenhydramine 50 Mg/Ml Vial) 25 mg IV NOW ONE Stop: 10/16/24 11:21 Last Admin: 10/16/24 11:29 Dose: 25 mg Documented By: YAZMIN Sodium Chloride (Normal Saline 0.9%) 1,000 mls @ 1,000 mls/hr IV BOLUS ONE Stop: 10/16/24 12:17 Last Infusion: 10/16/24 12:43 Dose: Infused Documented By: Admin: 10/16/24 11:29 Dose: 1,000 mls/hr Documented By: YAZMIN Sodium Chloride (Normal Saline 0.9%) 1,000 mls @ 1,000 mls/hr IV BOLUS ONE Stop: 10/16/24 13:44 Last Infusion: 10/16/24 13:58 Dose: Infused Documented By: Admin: 10/16/24 12:53 Dose: 1,000 mls/hr Documented By: YAZMIN Metoclopramide HCl (Metoclopramide 10 Mg/2 Ml Inj) 5 mg IV NOW ONE Stop: 10/16/24 11:19 Last Admin: 10/16/24 11:29 Dose: 5 mg Documented By: YAZMIN Ondansetron HCl (Ondansetron 4 Mg/2 Ml Inj) 4 mg IV NOW PRN PRN Reason: Nausea And Vomiting Last Admin: 10/16/24 12:53 Dose: 4 mg Documented By: YAZMIN Ondansetron HCl (Ondansetron 4 Mg Odt) 4 mg PO NOW PRN PRN Reason: Nausea And Vomiting Vital Signs Vital signs: Vital Signs - 8 hr 10/16/24 10:32 10/16/24 10:35 10/16/24 10:36 Temperature 97.7 F Pulse Rate 88 88 Respiratory Rate 13 Blood Pressure 130/68 130/68 Pulse Oximetry 99 99 Oxygen Delivery Method Room Air 10/16/24 10:36 10/16/24 11:00 10/16/24 11:00 Temperature Pulse Rate 85 84 Respiratory Rate Blood Pressure 113/56 L Pulse Oximetry 99 98 Oxygen Delivery Method MDM - Nausea/Vomiting/Diarrhea <Carly Matthews PA-C - Last Filed: 10/16/24 14:06> Medical Records Attestation: I reviewed the patient's medical records. Medical records narrative: Prior ED visits for atypical chest pain, headache. Lab Data 10/16/24 10:40 10/16/24 10:40 Labs: Lab Results 10/16/24 10/16/24 Range/Units 10:40 11:53 WBC 10.4 (4.5-11.0) X10^3/uL RBC 4.88 (4.0-5.2) X10^6/uL Hgb 14.7 (12.0-16.0) g/dL Hct 43.3 (36-46) % MCV 88.6 (80-100) fL MCH 30.1 (26-34) PG MCHC 34.0 (30-36) % RDW 13.7 (11.6-14.8) % Plt Count 331 (150-400) X10^3/uL Neut % (Auto) 71.9 (50-75) % Lymph % (Auto) 21.2 L (25-40) % [place] % (Auto) 5.2 (3-14) % Eos % (Auto) 1.1 L (2-4) % Baso % (Auto) 0.6 (0-2) % Neut # (Auto) 7500 H (9482-3275) /uL Lymph # (Auto) 2200 (8385-1862) /uL [place] # (Auto) 500 (0-900) /uL Eos # (Auto) 100 (0-450) /uL Baso # (Auto) 100 (0-100) /uL Sodium 137 (137-145) mmol/L Potassium 4.1 (3.4-5.1) mmol/L Chloride 102 (98-107) mmol/L Carbon Dioxide 23 (22-32) mmol/L BUN 9 (7-17) mg/dL Creatinine 0.57 (0.52-1.04) mg/dL Estimated GFR > 60 (>60) mL/min BUN/Creatinine Ratio 15.8 (6-22) Glucose 95 (70-99) mg/dL Calcium 9.5 (8.4-10.2) mg/dL Total Bilirubin 0.7 (0.2-1.3) mg/dL AST 35 (14-36) IU/L ALT 31 (<35) IU/L Alkaline Phosphatase 61 (38-126) U/L Total Protein 8.4 H (6.3-8.2) g/dL Albumin 4.9 (3.5-5.0) g/dL Globulin 3.5 (1.7-4.1) g/dL Albumin/Globulin Ratio 1.4 (1.0-2.8) Lipase 79 (23-300) U/L HCG, Quant 95114 mIU/mL Ur Bilirubin Confirm Negative (Negative) Urine RBC None seen (0-5/HPF) Urine WBC 1-5/hpf (0-5/HPF) Ur Squamous Epith Cells 1-5 /hpf (0-5/HPF) Urine Bacteria Few (2-10) H (None) Ur Culture Indicated? Specimen cultured Vol Urine Centrifuged 10ml (spun) Point of Care Testing Test Results Positive Urine Dip Bedside Urine Glucose Negative Bedside Urine Bilirubin + 1 Bedside Urine Ketone ++ 40 Urine Specific [place] 1.020 Bedside Urine Occult Blood - Negative Bedside Urine pH 6.0 Bedside Urine Protein +/- 15 Bedside Urine Urobilinogen +/- 1mg Bedside Urine Nitrite - Negative Bedside Urine Leukocytes + 70 Esterase MDM Narrative Medical decision making narrative: 7 weeks on progesterone, female with a past medical history of hyperthyroidism on PTU, endometriosis, anxiety/depression, 3 prior miscarriages who presents to the emergency department for nausea/vomiting in x1 week. Differential diagnosis includes but is not limited to nausea and vomiting of 1st trimester , hyperemesis gravidarum, electrolyte abnormality, dehydration, gastritis, pancreatitis, cholecystitis, gastroenteritis etc. On exam the patient is in no acute distress, nontoxic-appearing, all vital signs appropriate. Her abdomen is soft and nontender, she has not having any lower abdominal pain, cramping or vaginal bleeding. She has been using dye clear just without relief, she is in the process of being set up for Zofran and fusions. We will check urine, CBC, CMP, lipase, obtain baseline hCG quant, treat patient with fluids, Reglan, Benadryl following ACOG stepwise approach. If patient is feeling better we will p.o. challenge. At this time there is no indication for emergent imaging as she is having no pain or bleeding. Labs overall reassuring with a normal WBC count of 10.4, hemoglobin 14.7, platelets 331. Normal electrolytes with a sodium of 137, potassium 4.1, BUN 9 creatinine 0.57 which appears to be baseline. Glucose 95. Normal AST ALT alk phos. Normal lipase 79. Patient feels improved after initial treatment but reports still feeling somewhat dehydrated and fatigued, UA does reveal many ketones, we will treat with a additional L fluids and IV Zofran. Patient feeling much better after 2nd treatment regimen, tolerating p.o., eager for discharge home. UA did reveal few bacteria, WBCs, squamous epithelial cells, I do suspect dehydration/contamination however given we will treat his asymptomatic bacteriuria in with Keflex 500 mg t.i.d. x4 days, urine culture pending, advised patient start this tomorrow so as to not exacerbate her nausea and vomiting today. Advised prompt follow up with OBGYN, her OBGYN just sent her a prescription of promethazine. Discussed strict ED return precautions. Patient verbalized understanding all information is agreeable to the plan and is stable for discharge home. <Tatiana Flores, - Last Filed: 10/18/24 10:22> Lab Data Labs: Lab Results 10/16/24 10/16/24 Range/Units 10:40 11:53 WBC 10.4 (4.5-11.0) X10^3/uL RBC 4.88 (4.0-5.2) X10^6/uL Hgb 14.7 (12.0-16.0) g/dL Hct 43.3 (36-46) % MCV 88.6 (80-100) fL MCH 30.1 (26-34) PG MCHC 34.0 (30-36) % RDW 13.7 (11.6-14.8) % Plt Count 331 (150-400) X10^3/uL Neut % (Auto) 71.9 (50-75) % Lymph % (Auto) 21.2 L (25-40) % [place] % (Auto) 5.2 (3-14) % Eos % (Auto) 1.1 L (2-4) % Baso % (Auto) 0.6 (0-2) % Neut # (Auto) 7500 H (5582-6940) /uL Lymph # (Auto) 2200 (2381-8154) /uL [place] # (Auto) 500 (0-900) /uL Eos # (Auto) 100 (0-450) /uL Baso # (Auto) 100 (0-100) /uL Sodium 137 (137-145) mmol/L Potassium 4.1 (3.4-5.1) mmol/L Chloride 102 (98-107) mmol/L Carbon Dioxide 23 (22-32) mmol/L BUN 9 (7-17) mg/dL Creatinine 0.57 (0.52-1.04) mg/dL Estimated GFR > 60 (>60) mL/min BUN/Creatinine Ratio 15.8 (6-22) Glucose 95 (70-99) mg/dL Calcium 9.5 (8.4-10.2) mg/dL Total Bilirubin 0.7 (0.2-1.3) mg/dL AST 35 (14-36) IU/L ALT 31 (<35) IU/L Alkaline Phosphatase 61 (38-126) U/L Total Protein 8.4 H (6.3-8.2) g/dL Albumin 4.9 (3.5-5.0) g/dL Globulin 3.5 (1.7-4.1) g/dL Albumin/Globulin Ratio 1.4 (1.0-2.8) Lipase 79 (23-300) U/L HCG, Quant 13484 mIU/mL Ur Bilirubin Confirm Negative (Negative) Urine RBC None seen (0-5/HPF) Urine WBC 1-5/hpf (0-5/HPF) Ur Squamous Epith Cells 1-5 /hpf (0-5/HPF) Urine Bacteria Few (2-10) H (None) Ur Culture Indicated? Specimen cultured Vol Urine Centrifuged 10ml (spun) Point of Care Testing Test Results Positive Urine Dip Bedside Urine Glucose Negative Bedside Urine Bilirubin + 1 Bedside Urine Ketone ++ 40 Urine Specific [place] 1.020 Bedside Urine Occult Blood - Negative Bedside Urine pH 6.0 Bedside Urine Protein +/- 15 Bedside Urine Urobilinogen +/- 1mg Bedside Urine Nitrite - Negative Bedside Urine Leukocytes + 70 Esterase MDM Narrative Medical decision making narrative: 7 weeks on progesterone, female with a past medical history of hyperthyroidism on PTU, endometriosis, anxiety/depression, 3 prior miscarriages who presents to the emergency department for nausea/vomiting in x1 week. Differential diagnosis includes but is not limited to nausea and vomiting of 1st trimester , hyperemesis gravidarum, electrolyte abnormality, dehydration, gastritis, pancreatitis, cholecystitis, gastroenteritis etc. On exam the patient is in no acute distress, nontoxic-appearing, all vital signs appropriate. Her abdomen is soft and nontender, she has not having any lower abdominal pain, cramping or vaginal bleeding. She has been using dye clear just without relief, she is in the process of being set up for Zofran and fusions. We will check urine, CBC, CMP, lipase, obtain baseline hCG quant, treat patient with fluids, Reglan, Benadryl following ACOG stepwise approach. If patient is feeling better we will p.o. challenge. At this time there is no indication for emergent imaging as she is having no pain or bleeding. Labs overall reassuring with a normal WBC count of 10.4, hemoglobin 14.7, platelets 331. Normal electrolytes with a sodium of 137, potassium 4.1, BUN 9 creatinine 0.57 which appears to be baseline. Glucose 95. Normal AST ALT alk phos. Normal lipase 79. Patient feels improved after initial treatment but reports still feeling somewhat dehydrated and fatigued, UA does reveal many ketones, we will treat with a additional L fluids and IV Zofran. Patient feeling much better after 2nd treatment regimen, tolerating p.o., eager for discharge home. UA did reveal few bacteria, WBCs, squamous epithelial cells, I do suspect dehydration/contamination however given we will treat his asymptomatic bacteriuria in with Keflex 500 mg t.i.d. x4 days, urine culture pending, advised patient start this tomorrow so as to not exacerbate her nausea and vomiting today. Advised prompt follow up with OBGYN, her OBGYN just sent her a prescription of promethazine. Discussed strict ED return precautions. Patient verbalized understanding all information is agreeable to the plan and is stable for discharge home. Discharge Plan Departure Patient Disposition: Home Clinical Impression: Nausea and vomiting during Instructions: Nausea of (Alternative Therapy), DI for Vomiting -- Adult Activity Restrictions/Additional Instructions: Dear Ms. Will, Thank you for coming to the emergency department. Today you were treated with 2 L of IV fluids, Benadryl, Reglan and Zofran. I am very happy that you are feeling better. Please call to schedule an appointment with your OBGYN as soon as possible. Please rest, hydrate using small sips of electrolyte beverages such as Pedialyte, use chanel as needed for mild nausea, you can trial diphenhydramine (benadryl) or the prescription for nausea medication sent by your oBGYN if needed as well. Your urine test today did reveal a very small amount of bacteria, so you were sent an antibiotic for this to your pharmacy which you can start taking tomorrow once your stomach is feeling better. You will be called if your urine culture is positive any change or additional antibiotic is needed. Please follow up with your primary care doctor within the next 2-3 days for ER follow-up. (If you do not have a PCP you can call [phone]. ?to schedule an appointment with an [facility] Primary Care Provider) IF YOU DEVELOP ANY NEW OR WORSENING SYMPTOMS, RETURN TO THE ER! Please read the attached instructions, they highlight more specific treatments and interventions for you at home. Thank you for letting me participate in your care, Carly Matthews PA-C Prescriptions: New cephalexin 500 mg capsule 500 mg PO TID 4 Days Qty: 12 0RF No Action ranitidine HCl [Zantac] 150 mg tablet PO QDAY Qty: 0 loratadine [Claritin] 10 MG tablet 10 mg PO QDAY Qty: 0 norethindrone acetate 5 MG tablet 5 mg PO QDAY Qty: 0 hydrocodone-acetaminophen [[place]] 5 MG/325 MG tablet 1 tab PO Q4HP PRNQty: 10 0RF Referrals: Provider,Zoraida MEAD [Primary Care Provider] - Stand Alone Forms: Patient Portal/API/Survey, Work Release Note ED Sign-out <Tatiana Flores DO - Last Filed: 10/18/24 10:22> Cosign ED Attending Jus Attestation: I was immediately available in the department for consultation.
[2024-10-16 11:26] LABS: Add Manual Diff / Slide Review NO; Basophils Absolute Auto 100 /uL (0-100); Basophils Percent Auto 0.6 % (0-2); Eosinophils Absolute Auto 100 /uL (0-450); Eosinophils Percent Auto 1.1 % (2-4); Hematocrit 43.3 % (36-46); Hemoglobin 14.7 g/dL (12.0-16.0); Lymphocytes Absolute Auto 2200 /uL (1100-4500); Lymphocytes Percent Auto 21.2 % (25-40); Mean Corpuscular Hemoglobin 30.1 PG (26-34); Mean Corpuscular Volume 88.6 fL (80-100); Monocytes Absolute Auto 500 /uL (0-900); Monocytes Percent Auto 5.2 % (3-14); Neutrophils Absolute Auto 7500 /uL (1500-7000); Neutrophils Percent Auto 71.9 % (50-75); Platelet Count 331 X10^3/uL (150-400); Red Blood Cell Count 4.88 X10^6/uL (4.0-5.2); Red Cell Distribution Width 13.7 % (11.6-14.8); White Blood Cell Count 10.4 X10^3/uL (4.5-11.0)
[2024-10-16] MEDS: SODIUM CHLORIDE 0.9% 1,000 ML 1000 ML IV ×2 (11:29→12:53)
[2024-10-16] MEDS: METOCLOPRAMIDE 10 MG/2 ML INJ 5 MG IV (11:29)
[2024-10-16] MEDS: diphenhydrAMINE 50 MG/ML VIAL 25 MG IV (11:29)
[2024-10-16 11:32] LABS: Alanine Aminotransferase 31 IU/L (<35); Albumin 4.9 g/dL (3.5-5.0); Albumin Globulin Ratio 1.4 (1.0-2.8); Alkaline Phosphatase 61 U/L (38-126); Aspartate Aminotransferase 35 IU/L (14-36); BUN Creatinine Ratio 15.8 (6-22); Bilirubin Total 0.7 mg/dL (0.2-1.3); Blood Urea Nitrogen 9 mg/dL (7-17); Calcium 9.5 mg/dL (8.4-10.2); Carbon Dioxide 23 mmol/L (22-32); Chloride 102 mmol/L (98-107); Estimated Glomerular Filt Rate > 60 mL/min (>60); Globulin 3.5 g/dL (1.7-4.1); Glucose 95 mg/dL (70-99); HEMOLYSIS < 15 (0-50); Lipase 79 U/L (23-300); Potassium 4.1 mmol/L (3.4-5.1); Sodium 137 mmol/L (137-145); Total Protein 8.4 g/dL (6.3-8.2)
[2024-10-16 12:16] LABS: HCG Quantitative /Beta subunit 57204 mIU/mL
[2024-10-16] MEDS: ONDANSETRON 4 MG/2 ML INJ IV (12:53)
[2024-10-16 12:59] LABS: Ictotest Urine Negative (Negative)
[2024-10-16 13:15] LABS: Bacteria Urine Few (2-10); RBC Urine None Seen (0-5/HPF); Squamous Epithelial Cell Urine 1-5 /HPF (0-5/HPF); Urine Volume 10mL (spun); WBC Urine 1-5/HPF (0-5/HPF)
[2024-10-16 13:16] LABS: Culture Indicated Urine Specimen Cultured
[2024-10-16 14:19] VITALS: BP 110/66; PULSE 90; RESP 18; O2SAT 99
== END 2024-10-16 14:21 | disposition home or self-care (01) ==
PROVIDERS: Emergency Provider Physician Assistant; Family Provider General Practice
DX: O21.9 Vomiting of pregnancy, unspecified (principal); R10.13 Epigastric pain; Z3A.01 Less than 8 weeks gestation of pregnancy
CPT/HCPCS: 36415; 80053; 81003; 81015; 81025; 83690; 84702; 85025; 87077; 87086; 87186; 96361; 96374; 96375; 99284; J1200; J2405; J2765

== ENCOUNTER 2024-10-21 12:54 | Emergency (ER) | payer OTHER, SELFPAY ==
[2024-10-21 13:15] VITALS: BP 119/63; PULSE 85; RESP 17; TEMP 36.6; O2SAT 100; BMI 30.5
--- NOTE | 2024-10-21 15:51 | DI.US.S_ITS ---
PROCEDURE: US OB <= 14 WEEKS FETUS INDICATIONS: r/o ectopic, r/o torsion OUTSIDE/PRIOR DATING DATA: Last menstrual period (LMP): 08/24/2024. LMP-based estimated date of delivery (DOREEN): 08/01/2024. First dating scan (date and location): 10/21/2024. Estimated date of delivery (DOREEN) from first dating scan: 06/07/2025. TECHNIQUE: Real-time scanning was performed of the fetus and maternal pelvic organs, with image documentation. Endovaginal scanning was also performed to better visualize the fetus and maternal ovaries. COMPARISON: None. FINDINGS: Embryo: pole is identified with a crown-rump length of 1.1 cm, consistent with 7 weeks and 2 days. A normal yolk sac is seen. Heart rate: 150 Maternal organs: Ovaries are within normal limits. IMPRESSION: Single live intrauterine consistent with 7 weeks and 2 days. We strive to produce accurate, complete, and clear reports of imaging services. To assist us in improving patient care, this report was composed using standard report templates and voice recognition software. Therefore, it may contain abnormal punctuation, insertions and/or omissions. Occasional wrong-word or sound-alike substitutions may occur. Though we review the report and make efforts to correct it, we do recommend that the report be read carefully in proper context to recognize any text inaccuracies. Dictated by: Rayo Briseno M.D. on 10/21/2024 at 16:35 Approved by: Rayo Briseno M.D. on 10/21/2024 at 16:36
--- NOTE | 2024-10-21 15:52 | ED.NAVMDI ---
HPI - Nausea/Vomiting/Diarrhea General Chief complaint: Nausea/Vomiting/Diarrhea Stated complaint: upset stomach vomiting, Cramping 7 weeks Time Seen by Provider: 10/21/24 15:39 Source: patient Mode of arrival: Ambulatory History of Present Illness HPI Narrative: 29 y/o female Heidy Will is a , currently 7 weeks on progesterone, female with a past medical history of hyperthyroidism on PTU, endometriosis, anxiety/depression, 2 prior miscarriages, diagnosed with hyperemesis gravidarium and prescribed B6/Unasom, set up starting Wed by OB for infusions, here with n/v and low abdominal cramping. N/V has been ongoing for >1 week, visited ED a few days ago and treated with IVF/anti-emetics, discharged home. She reports that unfortunately for the last 24 hours she has not been able to keep down fluids. She has had since this mornig low abdominal cramping in suprapubic area with vomiting, not otherwise. Related Data Home Medications Medication Instructions Recorded Confirmed loratadine 10 mg tablet (Claritin) 10 mg PO QDAY ##0 08/08/17 norethindrone acetate 5 mg tablet 5 mg PO QDAY ##0 08/08/17 ranitidine HCl 150 mg tablet PO QDAY ##0 08/08/17 (Zantac) Previous Rx's Medication Instructions Recorded hydrocodone 5 mg-acetaminophen 325 1 tab PO Q4HP PRN #10 tabs 08/08/17 mg tablet ([place]) Allergies Allergy/AdvReac Type Severity Reaction Status Date / Time ibuprofen [IBUPROFEN] Allergy Unknown HIVES Verified 10/21/24 13:17 Patient History tobacco type: vaping Exam Initial Vital Signs Initial Vital Signs: Vital Signs Temperature 98 F 10/21/24 13:15 Pulse Rate 85 10/21/24 13:15 Respiratory Rate 17 10/21/24 13:15 Blood Pressure 119/63 10/21/24 13:15 Pulse Oximetry 100 10/21/24 13:15 Oxygen Delivery Method Room Air 10/21/24 13:15 Constitutional: Well appearing, no acute distress Head: NCAT Cardiovascular: normal rate Pulmonary: normal effort Abdominal: soft, pt does not react with palpation of abdomen but localizes pain to suprapubic area. Skin: warm and dry, no diaphoresis Neurological: Alert and oriented x3, normal speech Course Orders Ordered: ED Orders 10/21/24 15:51 US OB <= 14 weeks fetus Stat 10/21/24 15:55 Urinalysis and Microscopic Stat 10/21/24 15:57 CBC Auto Diff [Complete Blood Count AUTO DIFF] Stat CMP [Comprehensive Metabolic Panel] Stat HCG Quantitative /Beta subunit Stat Dextrose/Lactated Ringer's (Dextrose 5%-Lactated Ringers) 1,000 mls @ 500 mls/hr IV CONT MARCO Last Admin: 10/21/24 16:18 Dose: 500 mls/hr Documented By: LENA Discontinued Medications Diphenhydramine HCl (Diphenhydramine 50 Mg/Ml Vial) 50 mg IV NOW ONE Stop: 10/21/24 16:56 Last Admin: 10/21/24 17:15 Dose: 50 mg Documented By: LENA Metoclopramide HCl (Metoclopramide 10 Mg/2 Ml Inj) 5 mg IV NOW ONE Stop: 10/21/24 16:56 Last Admin: 10/21/24 17:15 Dose: 5 mg Documented By: LENA Ondansetron HCl (Ondansetron 4 Mg/2 Ml Inj) 4 mg IV NOW ONE Stop: 10/21/24 15:52 Last Admin: 10/21/24 16:18 Dose: 4 mg Documented By: LENA Vital Signs Vital signs: Vital Signs - 8 hr 10/21/24 13:15 10/21/24 17:10 Temperature 98 F Pulse Rate 85 92 H Respiratory Rate 17 Blood Pressure 119/63 109/56 L Pulse Oximetry 100 100 Oxygen Delivery Method Room Air MDM - Nausea/Vomiting/Diarrhea Lab Data 10/21/24 15:57 10/21/24 15:57 Labs: Lab Results 10/21/24 Range/Units 15:57 WBC 10.3 (4.5-11.0) X10^3/uL RBC 4.60 (4.0-5.2) X10^6/uL Hgb 13.7 (12.0-16.0) g/dL Hct 40.4 (36-46) % MCV 87.8 (80-100) fL MCH 29.8 (26-34) PG MCHC 34.0 (30-36) % RDW 13.3 (11.6-14.8) % Plt Count 259 (150-400) X10^3/uL Neut % (Auto) 69.3 (50-75) % Lymph % (Auto) 23.6 L (25-40) % [place] % (Auto) 6.0 (3-14) % Eos % (Auto) 0.5 L (2-4) % Baso % (Auto) 0.6 (0-2) % Neut # (Auto) 7100 H (3770-3202) /uL Lymph # (Auto) 2400 (3769-6042) /uL [place] # (Auto) 600 (0-900) /uL Eos # (Auto) 100 (0-450) /uL Baso # (Auto) 100 (0-100) /uL Sodium 133 L (137-145) mmol/L Potassium 3.8 (3.4-5.1) mmol/L Chloride 102 (98-107) mmol/L Carbon Dioxide 21 L (22-32) mmol/L BUN 9 (7-17) mg/dL Creatinine 0.49 L (0.52-1.04) mg/dL Estimated GFR > 60 (>60) mL/min BUN/Creatinine Ratio 18.4 (6-22) Glucose 84 (70-99) mg/dL Calcium 9.2 (8.4-10.2) mg/dL Total Bilirubin 0.5 (0.2-1.3) mg/dL AST 26 (14-36) IU/L ALT 21 (<35) IU/L Alkaline Phosphatase 60 (38-126) U/L Total Protein 7.8 (6.3-8.2) g/dL Albumin 4.5 (3.5-5.0) g/dL Globulin 3.3 (1.7-4.1) g/dL Albumin/Globulin Ratio 1.4 (1.0-2.8) HCG, Quant 761271 mIU/mL MDM Narrative Medical decision making narrative: Differential diagnosis considering this patient include hyperemesis gravidarum, ectopic , threatened , metabolic derangement and/or dehydration, cystitis or pyelonephritis. We will give D5 LR, IV Zofran, check laboratories and urinalysis, hCG level, as well as obtain OB ultrasound Laboratories today no leukocytosis, no anemia, normal platelets. There is slight acidosis with a bicarb of 21, probably secondary to ketosis. There is borderline hyponatremia, normal kidney function. HCG is upwards [place] 110,000[place] [address]884/14 Ultrasound shows sSingle live intrauterine consistent with 7 weeks and 2 days. Urinalysis does not show evidence of infection. Patient reports has been taking antibiotics for UTIs diagnosed at a recent visit. Her rechecked the patient is resting comfortably. She appears improved as compared to my initial assessment of her. She has been tolerating p.o. including soda, water, Justin crackers and white crackers. She has an appointment on Monday at the infusion center for IV fluids. She does not need any refill of her antiemetics. She was referred to OB for follow-up Discharge Plan Departure Patient Disposition: Home Clinical Impression: Nausea and vomiting during Instructions: Nausea of (Alternative Therapy) Activity Restrictions/Additional Instructions: I am glad that you are feeling better. Your tests today were overall reassuring. Ultrasound did show a single intrauterine that is normal-appearing. Urinalysis did not show infection. Please continue to take your nausea and vomiting medications as prescribed by your physician. Follow-up with your OBGYN on Monday at your scheduled appointment. Prescriptions: No Action ranitidine HCl [Zantac] 150 mg tablet PO QDAY Qty: 0 loratadine [Claritin] 10 MG tablet 10 mg PO QDAY Qty: 0 norethindrone acetate 5 MG tablet 5 mg PO QDAY Qty: 0 hydrocodone-acetaminophen [[place]] 5 MG/325 MG tablet 1 tab PO Q4HP PRNQty: 10 0RF Referrals: ProviderZoraida [Primary Care Provider] - Stand Alone Forms: Patient Portal/API/Survey
[2024-10-21 16:07] LABS: Add Manual Diff / Slide Review NO; Basophils Absolute Auto 100 /uL (0-100); Basophils Percent Auto 0.6 % (0-2); Eosinophils Absolute Auto 100 /uL (0-450); Eosinophils Percent Auto 0.5 % (2-4); Hematocrit 40.4 % (36-46); Hemoglobin 13.7 g/dL (12.0-16.0); Lymphocytes Absolute Auto 2400 /uL (1100-4500); Lymphocytes Percent Auto 23.6 % (25-40); Mean Corpuscular Hemoglobin 29.8 PG (26-34); Mean Corpuscular Volume 87.8 fL (80-100); Monocytes Absolute Auto 600 /uL (0-900); Neutrophils Absolute Auto 7100 /uL (1500-7000); Neutrophils Percent Auto 69.3 % (50-75); Platelet Count 259 X10^3/uL (150-400); Red Cell Distribution Width 13.3 % (11.6-14.8); White Blood Cell Count 10.3 X10^3/uL (4.5-11.0)
[2024-10-21] MEDS: DEXTROSE 5%-LACTATED RINGERS 1,000 ML 500 ML IV (16:18)
[2024-10-21] MEDS: ONDANSETRON 4 MG/2 ML INJ IV (16:18)
[2024-10-21 16:22] LABS: Alanine Aminotransferase 21 IU/L (<35); Albumin 4.5 g/dL (3.5-5.0); Albumin Globulin Ratio 1.4 (1.0-2.8); Alkaline Phosphatase 60 U/L (38-126); Aspartate Aminotransferase 26 IU/L (14-36); BUN Creatinine Ratio 18.4 (6-22); Bilirubin Total 0.5 mg/dL (0.2-1.3); Blood Urea Nitrogen 9 mg/dL (7-17); Calcium 9.2 mg/dL (8.4-10.2); Carbon Dioxide 21 mmol/L (22-32); Chloride 102 mmol/L (98-107); Estimated Glomerular Filt Rate > 60 mL/min (>60); Globulin 3.3 g/dL (1.7-4.1); Glucose 84 mg/dL (70-99); HEMOLYSIS < 15 (0-50); Potassium 3.8 mmol/L (3.4-5.1); Sodium 133 mmol/L (137-145); Total Protein 7.8 g/dL (6.3-8.2)
[2024-10-21 17:05] LABS: HCG Quantitative /Beta subunit 110010 mIU/mL
[2024-10-21 17:10] VITALS: BP 109/56; PULSE 92; O2SAT 100
[2024-10-21] MEDS: METOCLOPRAMIDE 10 MG/2 ML INJ 5 MG IV (17:15)
[2024-10-21] MEDS: diphenhydrAMINE 50 MG/ML VIAL IV (17:15)
[2024-10-21 17:33] LABS: Appearance Urine UA CLEAR; Bilirubin Urine UA NEGATIVE (NEGATIVE); Color Urine UA YELLOW; Glucose Urine UA 3+ g/dL (Negative); Ketones Urine UA 3+ (NEGATIVE); Leukocyte Esterase Urine UA NEGATIVE (NEGATIVE); Nitrite Urine UA NEGATIVE (Negative); Occult Blood Urine UA NEGATIVE (Negative); Protein Urine UA NEGATIVE (Negative); Urobilinogen Urine UA 0.2 E.U./dL (0.2)
[2024-10-21 17:37] LABS: pH Urine UA 6.5 (4.5-8.0)
[2024-10-21 17:39] LABS: Bacteria Urine Occasional (0-1); Culture Indicated Urine Cult Not Indicated; RBC Urine 1-5/HPF (0-5/HPF); Squamous Epithelial Cell Urine 5-10 /HPF (0-5/HPF); Urine Volume 10mL (spun); WBC Urine 0-1/HPF (0-5/HPF)
== END 2024-10-21 17:57 | disposition home or self-care (01) ==
PROVIDERS: Emergency Provider Student in an Organized Health Care Education/Training Program; Family Provider General Practice
DX: O21.9 Vomiting of pregnancy, unspecified (principal); Z3A.01 Less than 8 weeks gestation of pregnancy
CPT/HCPCS: 36415; 76801; 76817; 80053; 81001; 84702; 85025; 93975; 96361; 96374; 96375; 99284; J1200; J2405; J2765; J7121

== ENCOUNTER 2025-04-16 09:18 | Observation (INO) | payer OTHER, SELFPAY ==
[2025-04-16 10:16] LABS: Appearance Urine UA CLEAR; Bilirubin Urine UA NEGATIVE (NEGATIVE); Color Urine UA YELLOW; Glucose Urine UA NEGATIVE (Negative); Ketones Urine UA NEGATIVE (NEGATIVE); Leukocyte Esterase Urine UA NEGATIVE (NEGATIVE); Nitrite Urine UA NEGATIVE (Negative); Occult Blood Urine UA NEGATIVE (Negative); Protein Urine UA NEGATIVE (Negative); Specific Gravity Urine UA <=1.005 (1.000-1.035); Urobilinogen Urine UA 0.2 E.U./dL (0.2)
[2025-04-16 10:17] LABS: pH Urine UA 6.0 (4.5-8.0)
[2025-04-16 10:19] LABS: Culture Indicated Urine Cult Not Indicated
--- NOTE | 2025-04-16 11:05 | PM.OBTRLD ---
Visit Information Visit Information Date of evaluation: 04/16/25 On-call OB Provider: Ghada Brito Reason for Evaluation: Yes other Comments/Additional reasons for admission: 29 yo (pervious LTCS for NRFHT remote from delivery) at 32w3d presenting for pain at incision site on L site and pain in perineum. She is also experiences some swelling within the labia and vaginal discharge that is yellow in color but not malodorous. Having some burning with urination as well. She is not lucretia at all. BPs and vitals nml. She is also noting puffiness in her hands and feed She is seen by Dr Reagan at [facility]. complicated by hyperemesis, hypothyroidism and anemia for which she receives IVF iinfusions twice weekly ad IV Fe infusions. Review of Systems Review of Systems Narrative: + movement + perineal pain + Pelvic pain - rash - itcing + edema (hands and feet) - vision changes - RUQ pain + nausea (baseline for her in ) Exam Vital Signs (past 8 hours): BP- 106/64 P- 93 Narrative Exam Narrative: GEN: Healthy appearing, well-developed, NAD. PSYCH: Good Judgment. AOx3. Normal memory, mood, and affect HEENT: -Head: NC/AT -Eyes: No discharge or redness CV: warm and well perfused LUNGS: breathing comfortably on RA SKIN: Warm, well perfused. No skin rashes or abnormal lesions : nml external genitalia, physiologic appearing discharge , no lesions MSK: No deformities NEURO: No focal deficits Objective Labs 04/16/25 12:35 04/16/25 12:35 Labs: Laboratory Results - last 24 hr 04/16/25 09:45 Urine Color Yellow Urine Appearance Clear Urine pH 6.0 Ur Specific [place] <=1.005 Urine Protein Negative Urine Glucose (UA) Negative Urine Ketones Negative Urine Occult Blood Negative Urine Nitrate Negative Urine Bilirubin Negative Urine Urobilinogen 0.2 Ur Leukocyte Esterase Negative Urine RBC None seen Urine WBC None seen Ur Squamous Epith Cells 1-5 /hpf Urine Bacteria None seen Ur Culture Indicated? Cult not indicated Vol Urine Centrifuged 10ml (spun) Evaluation Evaluation Baseline heart rate: 130 Variability: Moderate (6-25) monitor accelerations: Present Monitor Decelerations: Absent Contraction Frequency (minutes): 0 Status: Category l Diagnosis, Plan/Disposition Plan/Disposition Plan: 29 yo (pervious LTCS for NRFHT remote from delivery) at 32w3d presenting for pain at incision site on L site and pain in perineum. Pelvic pressure : - UA reassuring - Wet mount and Gc/chl sent - recommend belly band for support incision pain: no contractions on TOCO -PRN tylenol - belly band for support - recommend f/up with primary OB Edema: - CBC, CMP nml, urine PC pending but BPs normotensive throughout her triage - recommend f/up wtih primary OB this week or next for BP check - PRe- E return precautions reviewed VAginal discharge: FHT reassurig, no Ctx on toco - wet mount - f/up wtih primary OB if sx persist OB Disposition: home
[2025-04-16 12:52] LABS: Add Manual Diff / Slide Review NO; Hematocrit 34.5 % (36-46); Hemoglobin 12.0 g/dL (12.0-16.0); Lymphocytes Absolute Auto 1600 /uL (1100-4500); Mean Corpuscular HGB Conc 34.7 % (30-36); Mean Corpuscular Hemoglobin 30.2 PG (26-34); Mean Corpuscular Volume 87.0 fL (80-100); Platelet Count 222 X10^3/uL (150-400)
[2025-04-16 13:20] LABS: Alanine Aminotransferase 12 IU/L (<35); Albumin 3.6 g/dL (3.5-5.0); Albumin Globulin Ratio 1.1 (1.0-2.8); Alkaline Phosphatase 76 U/L (38-126); Blood Urea Nitrogen 5 mg/dL (7-17); Calcium 9.4 mg/dL (8.4-10.2); Carbon Dioxide 21 mmol/L (22-32); Chloride 105 mmol/L (98-107); Estimated Glomerular Filt Rate > 60 mL/min (>60); Globulin 3.2 g/dL (1.7-4.1); Glucose 78 mg/dL (70-99); HEMOLYSIS < 15 (0-50); Potassium 3.4 mmol/L (3.4-5.1); Sodium 136 mmol/L (137-145); Total Protein 6.8 g/dL (6.3-8.2)
[2025-04-16 14:39] LABS: Urine Chlamydia NOT DETECTED; Urine N gonorrhoeae NOT DETECTED
[2025-04-16 14:54] LABS: Protein (Total) Urine Random 19 mg/dL (0-12); Protein Creatinine Ratio Urine 0.42 GRAM/24H
== END 2025-04-16 12:50 | disposition home or self-care (01) ==
PROVIDERS: Admitting Provider Family Medicine; Family Provider General Practice; Referring Provider Obstetrics & Gynecology; Visit Provider Family Medicine
DX: O34.211 Maternal care for low transverse scar from previous cesarean delivery (principal); R10.20 Pelvic and perineal pain unspecified side; O26.893 Other specified pregnancy related conditions, third trimester; O12.03 Gestational edema, third trimester; N89.8 Other specified noninflammatory disorders of vagina; Z3A.32 32 weeks gestation of pregnancy
CPT/HCPCS: 59025; 59050; 80053; 81001; 82570; 84156; 85025; 87210; 87491; 87591; G0378; G0379

== ENCOUNTER 2025-05-20 09:55 | Emergency (ER) | payer OTHER, SELFPAY ==
[2025-05-20 10:02] VITALS: BP 133/83; PULSE 107; RESP 12; TEMP 37; O2SAT 100; BMI 34.6
--- NOTE | 2025-05-20 10:14 | ED_ITS ---
HPI - Neuro Symptoms/Deficit General Chief Complaint: Eye Problems Stated Complaint: ob rec, lt side of numb/drooping x2 days Time Seen by Provider: 05/20/25 10:13 Source: patient Mode of arrival: Ambulatory History of Present Illness HPI Narrative: Patient is , 37 weeks extra due date June 08, 2025. Patient sees Dr. Reagan, [facility]. Patient IV infusion this past Monday due to the recent rain/floods. She would like IV fluids. She is here because yesterday started with left facial numbness and droop. No involvement of the extremities. No slurred speech. No prior history of stroke heart attack diabetes hypertension. No family history of strokes. No prior history of Prater's palsy. There is asymmetric wrinkling of the forehead. She does have discomfort in the left ear as well. No rash. On Anticoagulants: No Related Data Home Medications ?Medication ?Instructions ?Recorded ?Confirmed loratadine 10 mg tablet (Claritin) 10 mg PO QDAY ##0 0 08/08/17 norethindrone acetate 5 mg tablet 5 mg PO QDAY ##0 11/20 ranitidine HCl 150 mg tablet PO QDAY ##0 08/08/17 (Zantac) Previous Rx's ?Medication ?Instructions ?Recorded hydrocodone 5 mg-acetaminophen 325 1 tab PO Q4HP PRN # 10 tabs 08/08/17 mg tablet ([place]) artificial tears with lanolin eye 1 applic EYE-LEFT BE DTIME At 05/20/25 ointment bedtime and as needed dry ey e #3.5 grams methylprednisolone 4 mg tablets in See Rx Instructions PO .COMPLEX 05/20/25 a dose pack (Medrol (Ramirez)) #21 ea valacyclovir 1 gram tablet 1,000 mg PO TID #21 tabs Allergies Allergy/AdvReac Type Severity Reaction Status Date / Time ibuprofen (IBUPROFEN) Allergy Unknown HIVES Verified 10/21/24 13:17 Review of Systems Review of Systems Narrative: GENERAL: Negative chills, fatigue, malaise, fever, sweats. HEENT: Negative sinus pain, ear pain, sore throat RESPIRATORY: Negative dyspnea, cough CARDIOVASCULAR: Negative chest pain, palpitations GASTROINTESTINAL: Negative vomiting, nausea, abdominal pain : Negative dysuria, frequency, hematuria MUSCULOSKELETAL: Negative muscle or bony pain SKIN: Negative rash, skin lesions NEUROLOGIC: Negative limb numbness or weakness, positive numbness, positive facial droop ROS Unobtainable: All systems reviewed & are unremarkable except as noted in HPI and below Hematologic/Lymphatic On Anticoagulants: No Patient History tobacco type: vaping Exam Narrative Exam Narrative: GENERAL: in no distress, not toxic not dyspneic HEAD: Normocephalic. EYES: Pupils equal round ENT: Mucous membranes moist. No rash in the left ear canal or TM NECK: Trachea midline. CARDIOVASCULAR: Regular rate and rhythm RESPIRATORY: Clear to auscultation. Breath sounds equal bilaterally. No wheezes, rales, or rhonchi. GASTROINTESTINAL: Abdomen soft, BACK: No flank tenderness. EXTREMITIES: No gross deformities. NEURO: AOx4. Clear speech, there is asymmetry of the left face involving the l eft forehead. Weakness of closing the left eye lid. Asymmetric blinking of the eyes. 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 Light touch feels different on the left upper and lower face compared to the right. SKIN: Warm and dry PSYCH: Not anxious, is cooperative Initial Vital Signs Initial Vital Signs: Vital Signs Temperature 98.6 F 05/20/25 10:02 Pulse Rate 107 H 05/20/25 10:02 Respiratory Rate 12 05/20/25 10:02 Blood Pressure 133/83 05/20/25 10:02 Pulse Oximetry 100 05/20/25 10:02 Oxygen Delivery Method Room Air 05/20/25 10:02 Course Orders Ordered: Discontinued Medications Sodium Chloride (Normal Saline 0.9%) 1,000 mls @ 1,000 mls/hr IV BOLUS ONE Stop: 05/20/25 11:05 Last Admin: 05/20/25 10:34 Dose: 1,000 mls/hr Documented By: ZGG Vital Signs Vital signs: Vital Signs - 8 hr 05/20/25 10:02 05/20/25 10:45 Temperature 98.6 F Pulse Rate 107 H 106 H Respiratory Rate 12 16 Blood Pressure 133/83 139/94 H Pulse Oximetry 100 98 Oxygen Delivery Method Room Air Room Air MDM - Neuro Symptoms/Deficit MDM Narrative Medical decision making narrative: Patient is , 37 weeks extra due date June 08, 2025. Patient sees Dr. Reagan, [facility]. Patient Mr. IV infusion this past Monday due to the recent rain/floods. She would like IV fluids. She is here because yesterday started with left facial numbness and droop. No involvement of the extremities. No slurred speech. No prior history of stroke heart attack diabetes hypertension. No family history of strokes. No prior history of Prater's palsy. There is asymmetric wrinkling of the forehead. She does have discomfort in the left ear as well. No rash. MDM After history and exam, exam is reassuring, clinically Prater's palsy as there is involvement of the left forehead asymmetry wrinkling. No blood work or imaging indicated this time. Patient does desire her usual IV fluids that she has been getting but missed it because of the rain/floods. Differential considered: Includes but not limited to Prater's palsy shingles stroke Medical records reviewed: No recent visit for this complaint Consultations: 10:20 a.m.. I spoke with patient's OBGYN provider, Dr. Reagan, he approves for valacyclovir prednisone and Lacri-Lube. This is appropriate for patient's gestational stage. No ultrasound or blood work indicated at this time. Re-evaluations: 11:00 a.m.. Patient receiving IV fluids as requested. Reviewed with patient treatment plan and findings and diagnosis Prater's palsy and my discussion with her OBGYN provided. Prescription sent to your pharmacy to start today. Discussion: Appropriate for discharge home. No blood work or imaging indicated. 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 It does involve the left forehead. No wrinkling. Patient is OBGYN provider was contacted. Return precautions reviewed. Patient desires discharge home. Diagnosis: Prater's palsy Discharge Plan Departure Patient Disposition: Home Clinical Impression: Prater's palsy Instructions: DI for [place] Palsy Activity Restrictions/Additional Instructions: You are being treated for Prater's palsy. Please review discharge information regarding Prater's palsy. Your OBGYN provider was contacted and prescriptions have been sent to your pharmacy to burr picker and start today. Return if worse if any questions or concerns. Please see family doctor in a week for re-evaluation as well. Prescriptions: New methylprednisolone [Medrol (Ram[place])] 4 mg tablets,dose pack See Rx Instructions .ROUTE .COMPLEX Qty: 21 0RF Rx Instructions: orally per package directions valacyclovir 1 gram tablet 1,000 mg PO TID Qty: 21 0RF artificial tears with lanolin Ointment 1 applic EYE-LEFT BEDTIME Qty: 3.5 0RF No Action ranitidine HCl [Zantac] 150 mg tablet PO QDAY Qty: 0 loratadine [Claritin] 10 MG tablet 10 mg PO QDAY Qty: 0 norethindrone acetate 5 MG tablet 5 mg PO QDAY Qty: 0 hydrocodone-acetaminophen [[place]] 5 MG/325 MG tablet 1 tab PO Q4HP PRNQty: 10 0RF Referrals: ProviderZoraida [Primary Care Provider, Family Practice] Stand Alone Forms: Patient Portal/API
[2025-05-20] MEDS: SODIUM CHLORIDE 0.9% 1,000 ML 1000 ML IV (10:34)
[2025-05-20 10:45] VITALS: BP 139/94; PULSE 106; RESP 16; O2SAT 98
--- NOTE | 2025-05-20 10:55 | PC.NURSE ---
pt feeling slightly dizzy, requested po fluids. given IV and Iv fluids. Patient's pressure noted at 139/94.
[2025-05-20 11:42] VITALS: BP 137/97; PULSE 102; RESP 16; O2SAT 99
== END 2025-05-20 11:45 | disposition home or self-care (01) ==
PROVIDERS: Emergency Provider Emergency Medicine; Family Provider General Practice
DX: O99.891 Other specified diseases and conditions complicating pregnancy (principal); G51.0 Bell's palsy; Z3A.37 37 weeks gestation of pregnancy
CPT/HCPCS: 36415; 96360; 99284; J7030

== ENCOUNTER 2025-05-25 20:00 | Inpatient (IN) | payer OTHER, SELFPAY ==
[2025-05-25] MEDS: LACTATED RINGERS 1,000 ML 1000 ML IV (20:40)
[2025-05-25] MEDS: fentaNYL 100 MCG/2 ML INJ 50 MCG IV (22:01)
[2025-05-25 22:09] LABS: Add Manual Diff / Slide Review NO; Hematocrit 36.4 % (36-46); Hemoglobin 12.3 g/dL (12.0-16.0); Lymphocytes Absolute Auto 2500 /uL (1100-4500); Mean Corpuscular HGB Conc 33.9 % (30-36); Mean Corpuscular Hemoglobin 30.4 PG (26-34); Mean Corpuscular Volume 89.6 fL (80-100); Platelet Count 203 X10^3/uL (150-400)
[2025-05-25] MEDS: LACTATED RINGERS 1,000 ML 999 ML IV (22:18)
--- NOTE | 2025-05-25 22:48 | P.HPOB_ITS ---
OB HPI Date/Time Date of admission: 05/25/25 History of Present Condition Chief complaint: CONTRACTIONS DOREEN Calculator 2 Estimated Delivery Date Method Current WG Current Estimate 06/08/25 Ultrasound #1 38w 0d Estimated Gestational Age (weeks): 38w0d : 2 Para: 1 Narrative: 30yo at 38w0d here with regular painful contractions. Pt reports contractions started around 5pm, rapidly increasing in frequency and intensity since then. She denies any vaginal bleeding or LOF. The pts was followed by [facility] due to a prior and desire for TOLAC. The pts last was delivered via LTCS due to failure to progress during IOL at 41wks. The pts was otherwise complicated by hyperthyroidism stable on Methimazole, followed by Endocrinology. The pt also had Prater's Palsy on 05/20, treated with prednisone and valacyclovir x 1 week. Last EFW for this was 20th percentile on 05/12. care: good care and initiated at week # (8) Dating criteria OB: LMP confirmed by 1st trimester US Ultrasounds: normal 1st trimester US and normal mid trimester US Obstetrical complications: none Medical complications OB: other (hyperthyroidism) Preadmission Labs Last OB Lab Results: 2 Blood Type Pending Today, 20:40 Antibody Screen Pending Today, 20:40 Hct, (36-46) 36.4 % Today, 20:40 Hgb, (12.0-16.0) 12.3 g/dL Today, 20:40 -: Chlamydia screen: negative, Gonorrhea screen: negative and Urine: negative External Labs HCT: 35.0 -: GBS status: negative and Urine: negative Glucose Tolerance Testing: Fasting (82), 1 hr (152), 2 hr (117) and 3 hr (108) Prior (ies) Hx # Term Pregnancies: 1 Hx # Pregnancies: 0 Number of Living Children: 1 Evaluation Evaluation Baseline heart rate: 130 Variability: Moderate (6-25) monitor accelerations: Present Monitor Decelerations: Absent Contraction Frequency (minutes): 2 Uterine Contraction Intensity: Strong/Firm Status: Category l Dilation (cm): 8 Effacement (%): 90 station: -2 Position of cervix: anterior Consistency: soft Meds Home Medications and Allergies Home Medications ?Medication ?Instructions ?Recorded ?Confirmed ?Type ranitidine HCl 150 mg tablet PO QDAY ##0 08/08/17 His tory (Zantac) artificial tears with lanolin eye 1 applic EYE-LEFT BE DTIME At 05/20/25 05/25/25 Rx ointment bedtime and as needed dry ey e #3.5 grams methylprednisolone 4 mg tablets in See Rx Instructions PO .COMPLEX 05/20/25 05/25/25 Rx a dose pack (Medrol (Ramirez)) #21 ea valacyclovir 1 gram tablet 1,000 mg PO TID #21 tabs 05/25/25 Rx methimazole 10 mg tablet 10 mg PO DAILY 05/25/2505/06 History ondansetron 8 mg disintegrating 8 mg PO 3XD 05/25/25 1 07/26/24 History tablet vitamins with calcium 1 tab PO DAILY 05/25/25 05/25/25 History no.72-iron 27 mg-folic acid 1 mg tablet (M-Bari Plus) Allergies Allergy/AdvReac Type Severity Reaction Status Date / Time ibuprofen (IBUPROFEN) Allergy Unknown HIVES Verified 10/21/24 13:17 OB Exam Resp Effort & Inspection: normal respiratory effort Auscultation: clear to auscultation bilaterally Cardio Rate: regular rate Rhythm: regular rhythm Heart Sounds: S1 normal, S2 normal and no murmurs GI Inspection: non-distended Palpation: Yes soft and No tender Presentation: vertex Objective Labs 05/25/25 20:40 Labs: Laboratory Results - last 24 hr 05/25/25 20:40 WBC 10.0 RBC 4.06 Hgb 12.3 Hct 36.4 MCV 89.6 MCH 30.4 MCHC 33.9 RDW 14.2 Plt Count 203 Neut % (Auto) 65.6 Lymph % (Auto) 25.3 [place] % (Auto) 7.6 Eos % (Auto) 1.0 L Baso % (Auto) 0.5 Neut # (Auto) 6600 Lymph # (Auto) 2500 [place] # (Auto) 800 Eos # (Auto) 100 Baso # (Auto) 0 Assessment and Plan Assessment and Plan Assessment and Plan narrative: 30yo at 38w0d here with regular painful contractions. complicated by hyperthyroidism on Methimazole, hx of prior LTCS. Pt with significant cervical change in the last hour, from 2cm --> 8cm. Pt with SROM with clear fluid. After discussion of risks vs benefits, and with the OR team already present in the hospital, the decision was made to . Pt previously consented for TOLAC with her provider in [facility], risks vs benefits were again reviewed with the pt. Risks including but not limited to uterine rupture, hemorrhage. - Expectant management, anticipate - FHT reassuring - GBS negative, no prophylaxis indicated - Epidural in place for pain control - Additional labs requested from [facility] Time-Based Coding :: [TOTAL MINUTES] spent with patient and on the chart (including review of chart, obtaining history, exam, reviewing outside data, placing orders, documenting exam and treatment plan, and counseling patient) on [DATE].
--- NOTE | 2025-05-26 | PM.AN.REGBLK ---
Regional Block Pre-procedure PMH/ROS narrative: hx of prior cesarian comes in 7 cm, desire to TOLAC with epidural ASA Class: III Labs: Hct 36.4 % (36-46) 05/25/25 20:40 Plt Count 203 X10^3/uL (150-400) 05/25/25 20:40 Medications: Current Medications Generic Name Dose Route Start Last Admin Trade Name Freq PRN Reason Stop Dose Admin Butorphanol Tartrate 0.5 mg 05/25/25 23:15 Butorphanol 1 Mg/Ml Vial IV Q30MIN PRN Pruritis Ephedrine Sulfate 10 mg 05/25/25 23:15 Ephedrine 50 Mg/Ml Vial IV Q5M PRN Blood Pressure - Low Fentanyl 50 mcg 05/25/25 21:49 05/25/25 22:01 Fentanyl 100 Mcg/2 Ml Inj IV 50 mcg Q1H PRN Administration Pain, Severe (7-10) Oxytocin/Lactated Ringer's 30 unit in 500 mls @ 200 mls/hr 05/25/25 21:54 Oxytocin Premix IV CONT PRN Bleeding Protocol Lactated Ringer's 1,000 mls @ 999 mls/hr 05/25/25 23:15 Lactated Ringers IV 05/26/25 00:15 BOLUS ONE FENT 2MCG/ML BUPIV 0.125% EPI 200 mcg in 100 mls @ 10 mls/hr 05/25/25 23:15 Fentanyl/Bupiv/Ns 2mcg/Ml - 0.125% EPIDURAL CONT MARCO Protocol Ondansetron HCl 4 mg 05/25/25 23:15 Ondansetron 4 Mg/2 Ml Inj IV Q4H PRN Nausea And Vomiting Oxytocin 10 unit 05/25/25 21:54 Oxytocin 10 Unit/Ml Vial IM NOW PRN Bleeding Allergies: Allergies Allergy/AdvReac Type Severity Reaction Status Date / Time ibuprofen (IBUPROFEN) Allergy Unknown HIVES Verified 10/21/24 13:17 --: pt h and p obtained. rba discussed. draped and prep under sterile technique. v/s/s. l3 l4 interspace identified. lido 1% 3 cc skin wheel. 18 g tuohy through until LIUDMILA obtained. 27 g pencil point SAB needle + csf, - heme denies parethesias. SAB needle removed. epidural space injected with NS. catheter inserted. secured in sterile fashion. Procedure Insertion date: 05/25/25 Insertion time: 23:03 Prep/Local: betadine x3 (CHLORAPREP) and 1% lidocaine (3) Interspace: L3 L4 Patient position: sitting Needle: 17 gauge Tuohy (18 G) Loss of resistance with: saline LIUDMILA at (cm): 9 Catheter placed at SKIN (cm): 15 Sensory level: T10 Initial Medications TEST DOSE time: 23:08 TEST DOSE: 1.5% lidocaine with epinephrine 1:200k (mL): 3 BOLUS DOSE time: 23:10 BOLUS DOSE (mL): 5 BOLUS DOSE med: other (INFUSATE) Infusion INFUSION: 0.125% bupivacaine and with fentanyl 2 mcg/mL Initial rate (mL/hr): 10 Post-procedure Anesthesia date START: 05/25/25 Anesthesia time START: 20:55 Anesthesia date END: 05/26/25 Anesthesia time END: 00:58 Post-procedure Anesthesia Assessment: Yes CV function: HR/BP stable, Yes Resp function: RR/sat/airway adequate, Yes Post-op hydration adequate, Yes Pain control adequate, Yes Nausea & vomiting absent, Yes Temperature > 36 C, Yes Mental status appropriate and Yes Anesthesia complications
[2025-05-26] MEDS: TRANEXAMIC ACID 1,000 MG in SODIUM CHLORIDE 0.9% 100 ML 600 MG IV (01:15)
--- NOTE | 2025-05-26 01:24 | PM.OBPRVD ---
Labor & Delivery Delivery date: 05/26/25 Delivery Time: 00:58 Cervical ripening method: none Induction method: none Delivery monitor: external FHT and external uterine Route of delivery: Episiotomy description: None L&D Laceration Description: Vaginal - 1st Degree Quantitative Blood Loss: 480 Anesthesia Type: Epidural Complications: None Narrative: PROCEDURE: at 38w0d presented in active labor and was admitted to Labor and Delivery. The patient progressed through the 1st stage over 7 hours. SROM occured at 23:09 with meconium-stained fluid. Pain was controlled with an epidural. The patient progressed through the 2nd stage over 39 minutes and delivered a viable female infant with APGARs 9/9 at 00:58 via without complications. The cord was cut and clamped after it stopped pulsating. The placenta delivered with gentle cord traction, and appeared complete. The perineum and vagina were inspected with vaginal laceration just inside introitus that was bleeding, and repaired with 3-O Chromic. Needle and sponge counts were correct.? The vagina was inspected and no items were left in situ. Heidy was doing well with her and her at bedside. PREPROCEDURE DIAGNOSIS: Intrauterine at 38w1d Hyperthyroidism GBS negative RH positive Hx of prior POSTPROCEDURE DIAGNOSIS: Intrauterine at 38w1d, delivered Same as preprocedure Baby 1: Infant gender: Female Presentation: vertex Position: Left Occiput Anterior Placenta delivery description: Spontaneous Cord Vessel Description: 3 Vessels score (1 min): 9 score (5 min): 9 weight: 6 lb 10.915 oz Plan for aftercare: Routine care
[2025-05-26 02:19] VITALS: BP 143/65
[2025-05-26] MEDS: DERMOPLAST SPRAY 20% 60 ML 1 SPRAY TOP (03:33)
[2025-05-26] MEDS: ACETAMINOPHEN 325 MG TABLET 650 MG PO ×3 (03:34→22:23)
[2025-05-26] MEDS: LANOLIN OINT 7 GM 1 APPLIC TOP (03:34)
[2025-05-26 06:12] LABS: Add Manual Diff / Slide Review NO; Hematocrit 35.6 % (36-46); Hemoglobin 12.1 g/dL (12.0-16.0); Lymphocytes Absolute Auto 2400 /uL (1100-4500); Mean Corpuscular HGB Conc 33.9 % (30-36); Mean Corpuscular Hemoglobin 30.2 PG (26-34); Mean Corpuscular Volume 89.3 fL (80-100); Platelet Count 193 X10^3/uL (150-400)
[2025-05-26 07:00] VITALS: BP 137/83
--- OUTSIDE RECORDS SUMMARY | 2025-05-26 07:36 | XMS_ITS | Clinical Summary ---
Author Organization [facility] Address [address] [place] [id number] Care Team Providers Care Hydrant Setter Name Role Phone Елена Carbone MD Unavailable [phone] Allergies Active Allergy Reactions Criticality Noted Date Comments Cat Dander 10/24/2022 Ibuprofen Rash Low 10/24/2022 Medications acetaminophen (TYLENOL) 325 MG tablet Take 325 mg by mouth 1 to 3 times daily as needed for Pain Active SUMAtriptan (IMITREX) 25 MG tablet See Instructions, Take 1 tablet by mouth at onset of migraine headache. May repeat dose after 2 hours if needed. Max of 100mg within 24 hours, # 9 tab(s), 0 total refill(s), Maintenance, Take 1 tablet by mouth at onset of migraine headache. May repeat dose after 2 hours if needed. Max of 100mg within 24 hours, Pharmacy: [id number] 12/11/19 24 Active M-KARINA PLUS 27 mg iron- 1 mg tablet 10/15/19 25 Active pyridoxine, vitamin B6, (B-6) 25 MG tablet Take 25 mg by mouth Twice a day 10/16/19 25 Active ondansetron (ZOFRAN-ODT) 8 MG disintegrating tabletIndications: Hyperemesis Take 1 tablet (8 mg total) by mouth every 8 (eight) hours as needed for Nausea or Vomiting 30 tablet 2 12/19/19 25 Active metoclopramide HCl (REGLAN) 10 MG tabletIndications: Hyperemesis Take 1 tablet (10 mg total) by mouth 4 (four) times daily before meals and nightly 60 tablet 2 12/19/19 25 Active methIMAzole (TAPAZOLE) 5 MG tablet Take 1 tablet daily. Discontinue PTU. 11/28/19 25 Active ferrous sulfate 325 mg (elemental iron 65 mg) tabletIndications: Antepartum anemia Take 1 tablet (325 mg total) by mouth every morning before breakfast 30 tablet 11 01/29/20 25 026 Active docusate sodium (COLACE) 100 MG capsule Take 1 capsule (100 mg total) by mouth Twice a day 100 capsule 1 04/18/20 25 Active white petrolatum-mineral oiL 83-15 % Ointment ophthalmic ointment Bedtime 05/20/20 25 Active methylPREDNISolone (MEDROL DOSE PACK) 4 mg tablet Take by mouth 05/20/20 25 Active valACYclovir (VALTREX) 1000 MG tablet THREE TIMES A DAY 05/20/20 25 Active Active Problems Problem Noted Date Diagnosed Date Pelvic pressure in , antepartum, second trimester 02/17/2025 Anemia in 01/28/2025 Rubella equivocal 10/31/2024 Supervision of other normal , antepartu m 10/30/2024 Overview (05/13/2025): FOB: Christiano, daughter 5 Macy Genetics:declined Baby sex/Name: Girl Plan: TOLAC considering unsure PP BCM: Vaccines: COVID_declined /Flu_done_/Tdap_done_ Previous delivery affecting 0 10/30/2024 Overview (03/12/2025): In 2019 for failed IOL at 41wks. 7lbs 14oz. Desires TOLAC. Op report reviewed and confirmed LTCS consent signed 03/12/25. calculator 69% success rate Hyperemesis 10/17/2024 Anxiety 10/24/2022 Borderline personality disorder 10/24/2022 Hyperthyroidism 10/24/2022 Overview (10/30/2024): Grave's dz. On PTU 25 twice daily 1st trimester. Managed by Dr. Wise (Endo at [facility]) Regular astigmatism of both eyes 10/24/2022 Endometriosis determined by laparoscopy 01/31/20 19 Overview (07/16/2024): Per pt. With Dr. Benitez Infertility, female, secondary 01/30/2019 Overview (07/16/2024): SAB x 2: 1st spontaneous never reached bloodwork or US stage. 2nd confirmed by hCG but US never showed a sac Estimated Date of Delivery Comme nts Yes 06/08/2025 Based on Ultraso und, DOREEN 06/08 [facility] in office US Resolved Problems Problem Noted Date Diagnosed Date Resolved Date 24 weeks gestation of 02/17/2025 03/12/2025 Bilateral carpal tunnel syndrome 10/24/2022 10/30/2024 Esophageal reflux 10/24/2022 10/30/2024 Mechanical low back pain 10/24/2022 Morbid obesity 10/24/2022 10/30/2024 Dysmenorrhea 01/30/2019 10/30/2024 Dyspareunia, female 01/30/2019 10/31/19 25 Encounters Date Type Department Care Team Description 05/22/2025 Results Follow-Up [facility] [address] [place] [phone] JeanKezia MD SureSwab(R) Advanced Vaginitis, TMA 05/21/2025 1:20 PM PST Routine [facility] [address] [place] [phone] JeanKezia MD GA: 37w3d 05/21/2025 11:00 AM PST Infusion [facility] Outpatient Infusion [address] [place] [address] [place] [address] Maury Reagan MD Hyperemesis 05/21/2025 Telephone ENGINEERING TECHNICAL WRITER - [place] [address] [place] [address] Michelle Tong RN IV fluids 2025 Telephone ENGINEERING TECHNICAL WRITER [place], [place] [address] [place] [address] Kayce Zambrano, airconditioning drafting officer Only 05/13/2025 1:20 PM PST [facility]ine [facility] [address] [phone] Maury Reagan MD GA: 36w2d 05/13/2025 11:00 AM PST Infusion [facility] Outpatient Infusion [address] [place] [address] [place] [address] Maury Reagan MD Hyperemesis 05/12/2025 2:23 PM PST - 05/12/2025 11:59 PM PST Hospital Encounter [address] [place] [address] Maury Reagan MD Supervision of other normal , antepartum Discharge Disposition: Home or Self Care 05/09/2025 10:00 AM PST Infusion [facility] Outpatient Infusion [address] [place] [address] [place] [address] Maury Reagan MD Hyperemesis 05/05/2025 2:00 PM PST Infusion [facility] Outpatient Infusion [address] [place] [address] [place] [address] Maury Reagan MD Hyperemesis 05/02/2025 Telephone ENGINEERING TECH[place]ICAL [place] [address] [place] [phone] Philomena Brown MD HR ob appointment 04/30/2025 12:30 PM PST Infusion [facility] Outpatient Infusion [address] [place] [address] [place] [address] Maury Reagan MD Hyperemesis 04/28/2025 2:00 PM PST Infusion [facility] Infusion [address] [place] [address] [place] [address] Maury Reagan MD Hyperemesis 04/28/2025 1:20 PM PST Routine [address] [place] [phone] Maury Reagan MD GA: 34w1d 04/24/2025 8:15 AM PST Infusion [facility] Outpatient Infusion [address] [place] [address] [place] [address] Maury Reagan MD Hyperemesis 04/23/2025 Results Follow-Up [address] [phone] Maury Reagan MD Protein, 24 Hr Urine 04/22/2025 10:00 AM PST Infusion [facility] Outpatient Infusion [address] [place] [address] [place] [address] Maury Reagan MD Hyperemesis 04/18/2025 1:40 PM PST Routine [address] [place] [phone] Maury Reagan MD GA: 32w5d 04/17/2025 12:30 PM PST Infusion [facility] Outpatient Infusion [address] [place] [address] [place] [address] Maury Reagan MD Hyperemesis 04/17/2025 10:45 AM PST - 04/17/2025 11:59 PM PST Hospital Encounter [address] [place] [address] Maury Reagan MD Discharge Disposition: Home or Self Care 04/17/2025 Results Follow-Up [address] [phone] Maury Reagan MD [facility]:OB US Ultrasound (GROWTH / ANATOMY / FOLLOW-UP), Single Gestation 04/16/2025 Telephone ENGINEERING TECHNICAL WRITER - [place], [place] [address] [place] [phone] Jean, Kezia Simms MD [facility] 04/16/2025 Telephone ENGINEERING TECHNICAL [place] [address] [facility] [address] [place] [phone] Jadyn Persaud, ALEX OB Question / Concern 04/15/2025 Scanned Document SCANNED ONLY Scanned, Document 04/14/2025 1:00 PM PST Infusion [facility] Outpatient Infusion [address] [place] [address] [place] [address] Maury Reagan MD Hyperemesis 04/11/2025 11:00 AM PST Routine [facility] [address] [phone] Jean, Kezia Simms MD GA: 31w5d 04/11/2025 9:30 AM PST Infusion [facility] Outpatient Infusion [address] [place] [address] [place] [address] Maury Reagan MD Hyperemesis 04/07/2025 1:00 PM PST Infusion [facility] Infusion [address] [place] [address] [place] [address] Maury Reagan MD Hyperemesis 04/02/2025 12:00 PM PDT Infusion [facility] Outpatient Infusion [address] [place] [address] [place] [address] Maury Reagan MD Davis, Nicole J, RN Hyperemesis 03/31/2025 1:30 PM PDT Infusion [facility] Outpatient Infusion [address] [place] [address] [place] [address] Maury Reagan MD Hyperemesis 03/28/2025 1:00 PM PDT Infusion [facility] Outpatient Infusion [address] [place] [address] [place] [address] Maury Reagan MD Hyperemesis 03/26/2025 12:30 PM PDT Infusion [facility] Outpatient Infusion [address] [place] [address] [place] [address] Maury Reagan MD Hyperemesis 03/24/2025 1:00 PM PDT Routine [facility] [address] [phone] Maury Reaagn MD GA: 29w1d 03/21/2025 1:30 PM PDT Infusion [facility] Outpatient Infusion [address] [place] [address] [place] [address] Maury Reagan MD Hyperemesis 03/18/2025 1:30 PM PDT Infusion [facility] Outpatient [address] [place] [address] Maury Reagan MD Davis, Nicole J, RN Hyperemesis 03/18/2025 Results Follow-Up ENGINEERING TECHNICAL WRITER [place] [address] [place] [phone] Celia Gómez DO Ultrasound Obstetrical Follow Up Size/Organ Per Fetus 03/14/2025 2:00 PM PDT Infusion [address] [place] [address] Maury Reagan MD Hyperemesis 03/14/2025 1:57 PM PDT - 03/14/2025 11:59 PM PDT Hospital Encounter [facility] Ultrasound [address] [place] [address] [place] [address] Celia Gómez DO Discharge Disposition: Home or Self Care 03/12/2025 11:00 AM PDT Routine [facility] - [address] [place] [phone] Maury Reagan MD GA: 27w3d 03/10/2025 1:00 PM PDT Infusion [address] [place] [address] Maury Reagan MD Hyperemesis 03/09/2025 Results Follow-Up [facility] - [address] [phone] Maury Reagan MD Glucose, Gestational Screen (50g)-135 Cutoff, CBC with Differential, Reflex to Ferritin (CUSTOM) MCPB OB 03/09/2025 Orders Only [facility] [phone] Maury Reagan MD Encounter for supervision of other normal in third trimester 03/07/2025 12:30 PM PDT Infusion [address] [place] [address] Maury Reagan MD Hyperemesis 03/06/2025 Scanned Document SCANNED ONLY Scanned, Document 03/04/2025 2:00 PM PDT Infusion [address] [place] [address] Maury Reagan MD Hyperemesis 02/28/2025 1:30 PM PDT Infusion [address] [place] [address] Maury Reagan MD Hyperemesis 02/24/2025 1:30 PM PDT Infusion [address] [place] [address] Maury Reagan MD Hyperemesis 02/24/2025 11:00 AM PDT [facility]ine [facility] [address] [place] [phone] Maury Reagan MD GA: 25w1d from Last 3 Months Immunizations Immunization Administration Dates Next Due Adenovirus 04/01/2013 Dt, Ipv Adsorbed Vaccine 07/03/2014 HPV9 05/17/2017 Hep A / Hep B 11/29/2013,05/07/2013,04/01/2013 IPV 05/07/2013 Influenza Intradermal 04/01/2013 Influenza quad (PF) 04/12/2023,,05/12/2020,06/12,06/12/2018 Influenza quad cell culture (PF) MDCK (4 years +) 05/01/2017 Influenza quad with preservative MDCK 05/01/2017 Influenza trivalent (PF) 03/12/2025,02/03(Deferred: Patient Refused) Influenza trivalent (PF) (3 years and up) 05/01/2017,03/27/2014 Influenza trivalent intranas al (2 years through 49 years) 04/09/2015,04/01/2013 Influenza trivalent with pre servative (6 months and up) 04/23/2016 Meningococcal (MCV4p) 04/01/2013 RSV-Bivalent (ABRYSVO) vaccine 04/28/2025(Deferr ed: Patient Refused) Tdap 03/12/2025,10/14/2019,04/01/2013 Typhoid Inactivated 05/03/2016,11/29/2013 influenza nasal, unspecified formulation 03/20/2024 Family History Medical History Relation Comments No Known Problems Brother Arthritis Father Diabetes type II Father Hypothyroidism Father No Known Problems Maternal Grandfather No Known Problems Maternal Grandmother Diabetes type II Mother Heart attack Paternal Grandfather Breast cancer Paternal Grandmother No Known Problems Sister Relation Status Comments Brother Father Maternal Grandfather Maternal Grandmother Mother Paternal Grandfather Paternal Grandmother Sister Social History Tobacco Use Types Packs/Day Years Used Date Smoking Tobacco: Former Cigarettes Smokeless Tobacco: Never Tobacco Cessation:Counseling Given: Not Answered Comments:Stopped in June 2024. Alcohol Use Standard Drinks/Week Comments Not Currently 0 (1 standard drink = 0.6 oz pur e alcohol) few drinks a month [place] Depression Scale Answer Date Recorded [place] Depression Scale Total 13 03/24/2025 The thought of harming myself has occurred to me . Never 03/24/2025 Estimated Date of Delivery Comme nts Yes 06/08/2025 Based on Ultraso und, DOREEN 06/08 [facility] in office US Sex and Gender Information Value Date Recorded Sex Assigned at Female 07/16/2024 2:23 PM PST Legal Sex Female 12:01 PM PDT Gender Identity Female 07/16/2024 2:23 PM PST Sexual Orientation Straight 07/16/2024 2: 23 PM PST Last Filed Vital Signs Vital Sign Reading Time Taken Comments Blood Pressure 118/84 05/21/2025 1:27 PM PST Pulse 100 05/21/2025 1:27 PM PST Temperature 36.7 C (98.1 F) 05/21/2025 11:22 AM PST Respiratory Rate 18 05/21/2025 11:22 AM PST Oxygen Saturation 99% 05/21/2025 12:48 PM PST Inhaled Oxygen Concentration - - Weight 104.3 kg (230 lb) 05/21/2025 1:27 PM PST Height 170.2 cm (5' 7) 10/24/2022 3:56 PM PDT Body Mass Index 36.02 10/24/2022 3:56 PM PDT Plan of Treatment Upcoming Encounters Date Type Department Care Team (Late st Contact Info) Description 05/26/2025 1:00 PM PST Infusion [address] [place] [address] Maury Reagan MD [address] [place] [phone] 06/02/2025 12:30 PM PST Infusion [address] [place] [address] Maury Reagan MD [address] [place] [phone] 06/04/2025 11:00 AM PST [facility] [address] [place] [phone] Maury Reagan MD [address] [place] [address] [phone] 06/04/2025 12:30 PM PST Infusion [address] [place], [place] [phone] Maury Reagan MD [address] [place] [address] [phone] 06/08/2025 Hospital Encounter [facility] Labor and Delivery 1B [address] [place], [place] [phone] Maury Reagan MD [address] [phone] Health Maintenance Due Date Last Done Comments Disability Screening 1994 HPV Vaccine (2 - Risk 3-dose series) 06/14/2017 05/17/2017 Varicella Vaccine (1 of 2 - 13+ 2-dose series) 04/17/2024 Drug, Alcohol, and Depression Screening 06/05/2024 Covid-19 Vaccine ( season) 2025 Pap Smear 07/16/2027 07/16/2024 Cervical Cancer Screening 07/16/2029 HPV/COTEST 07/16/2029 07/16/2024 DTaP/Tdap/Td Vaccine (5 - Td or Tdap) 03/12/2035 03/12/2025, 10/14/2019, 07/03/2014, Additional history exists Zoster (1 of 2) 2044 SOGIE Completed 07/16/2024 HIV Screening Completed 10/30/2024 Hepatitis C Screening Completed 10/30/2024 Influenza Vaccine Completed 03/12/2025, , 04/12/2023, Additional history exists Pneumococcal Ages 0-5 Years and At Risk Patients Ages 6-49 Years Aged Out No longer eligible based on patient's age to complete this topic RSV Vaccines (No Doses Required) Completed Procedures Procedure Name Priority Date/Time Associated Diagnosis Comments SURESWAB(R) ADVANCED VAGINITIS, TMA Routine 05/21/2025 Vaginal itching GROUP B STREPTOCOCCUS DNA DETECTION, - NO SUSCEPTIBILITIES Routine 05/13/2025 1:22 PM PST screening for streptococcus B US OB F/U SZ/ORGAN SINGLE FETUS Routine 05/12/2025 3:16 PM PST Supervision of other normal , antepartum PROTEIN, URINE, 24 HOUR Routine 04/21/20 25 9:02 AM PST Supervision of other normal , antepartum US OB F/U SZ/ORGAN SINGLE FETUS Routine 04/17/2025 12:06 PM PST Supervision of other normal , antepartum US OB F/U SZ/ORGAN SINGLE FETUS Routine 03/14/2025 4:54 PM PDT Supervision of other normal , antepartum *GLUC DEIDRE FAST GEST DM DIAG 100GM, LAB GENERATED ORDER Routine 03/10/2025 8:59 AM PDT Encounter for supervision of other normal in third trimester CBC WITH DIFFERENTIAL, REFLEX TO FERRITIN Routine 03/07/2025 8:57 AM PDT Encounter for supervision of other normal in third trimester SYPHILIS ANTIBODY CASCADING REFLEX Routine 03/07/2025 8:57 AM PDT Encounter for supervision of other normal in third trimester GLUCOSE, GESTATIONAL SCREEN (50G)-135 CUTOFF Routine 03/07/2025 8:57 AM PDT Encounter for supervision of other normal in third trimester HIV AG/AB (4TH GEN) EIA, REFLEX TO CONFIRMATION (HIV SCREENING) Routine 10/30/2024 10:23 AM PDT Multigravida, antepartum Supervision of other normal , antepartum BMI 31.0-31.9,adult HEPATITIS C VIRUS ANTIBODY,REFLEX TO HCV, RNA, QUANT PCR Routine 10/30/2024 10:23 AM PDT Multigravida, antepartum Supervision of other normal , antepartum BMI 31.0-31.9,adult PAP, AND HPV (REFLEX TO 16,18/45 GENOTYPING) Routine 07/16/2024 2:40 PM PST Pap smear for cervical cancer screening from Last 3 Months or Most Recently Relevant to Health Maintenance Results * SureSwab(R) Advanced Vaginitis, TMA (05/21/2025) Sureswab(R) Advanced Bacterial Vaginosis (BV), TMA NEGATIVE NEGATIVE [facility] Adilene Species NOT DETECTED NOT DETECTED [facility] Adilene glabrata NOT DETECTED NOT DETECTED [facility] Comment: Adilene species C. albicans, C. tropicalis, C. parapsilosis, and/or C. dubliniensis can be detected, but not differentiated, in the Adilene spp. result. TV TMA NOT DETECTED NOT DETECTED [facility] Comment: Test Performed at: [facility] [address] [place] [address] DIONNE BURGESS MD Default Specimen SPECIMEN FROM VAGINA / Unknown 05/21/2025 05/22/2025 1:33 AM PST Narrative Resulting Agency Comment Performing Organization Information: Site ID: NW Name: [facility] Address: [address] [place] [address] [place] [phone] Director: DIONNE BURGESS MD us Kezia Dyer MD MICROBIOLOGY - GENERAL [place] BLELoraine Final Result Performing Organization Address [facility] de Phone Number [facility] [phone] * Group B Streptococcus DNA Detection, - No susceptibilities (05/13/2025 1:22 PM PST) Source: [facility] Streptococcus agalactiae DNA NOT DETECTED NOT DETECTED [facility] Comment: Note per CDC guidelines optimal recovery is achieved by swabbing both the lower vagina and rectum (through the anal sphincter). Test Performed at: [address] [address] DIONNE BURGESS MD Default Specimen (Vaginal/Rectal) 05/13/2025 1:22 PM PST 05/14/2025 12:11 AM PST Narrative Resulting Agency Comment Performing Organization Information: Site ID: NW Name: [facility] Address: [address] [place] [phone] Director: DIONNE BURGESS MD us Maury Reagan MD MICROBIOLOGY - GENERAL ORDERABLE S Final Result Performing Organization Address [facility] de Phone Number [facility] [phone] * [facility]:OB US Ultrasound (GROWTH / ANATOMY / FOLLOW-UP), Single Gestation (05/12/2025 3:16 PM PST) Only the most recent of3 resultswithin the time period is included. Anatomical Region Laterality Modality Ultrasound 05/12/2025 3:21 PM PST Narrative 05/12/2025 3:27 PM PST US OB F/U SZ/ORGAN SINGLE FETUS Clinical: growth Comparison: 04/17/2025 Procedure: Transabdominal imaging Findings: Single living intrauterine gestation is present in vertex position. Cervix Long and closed 4.4 cm. Normal amniotic fluid volume. Amniotic fluid index 10.3 cm. The placenta is posterior without previa. Placenta appears mature. Neither ovary is seen due to overlying bowel gas. No myometrial mass. heart rate is 134 and regular. Normal somatic motion. Biometrics: BPD: 8.5 cm, 34 weeks 2 days, 11th percentile Head Circ.: 32.1 cm, 36 weeks 1 day, 21st percentile Abdominal Circ.: 31.7 cm 35 weeks, 5 days, 46 percentile Femur length: 6.4 cm, 33 weeks 1 day, second percentile Humerus length: 5.5 cm Estimated weight is 2540 g, 20th percentile. IMPRESSION: 1. Single living intrauterine gestation with gestational age 36 weeks 1 day based on established due date 06/08/2025. 2. Estimated weight at the 20th percentile 3. Short femur at the 2nd percentile 4. Normal amniotic fluid volume. 5. No placenta previa Electronically signed by: Sanaz Abreu MD 05/12/2025 3:27 PM, [facility]. Reported on: [id number] Procedure Note Sanaz Abreu MD - 05/12/2025 US OB F/U SZ/ORGAN SINGLE FETUS Clinical: growth Comparison: 04/17/2025 Procedure: Transabdominal imaging Findings: Single living intrauterine gestation is present in vertex position. Cervix Long and closed 4.4 cm. Normal amniotic fluid volume. Amniotic fluid index 10.3 cm. The placenta is posterior without previa. Placenta appears mature. Neither ovary is seen due to overlying bowel gas. No myometrial mass. heart rate is 134 and regular. Normal somatic motion. Biometrics: BPD: 8.5 cm, 34 weeks 2 days, 11th percentile Head Circ.: 32.1 cm, 36 weeks 1 day, 21st percentile Abdominal Circ.: 31.7 cm 35 weeks, 5 days, 46 percentile Femur length: 6.4 cm, 33 weeks 1 day, second percentile Humerus length: 5.5 cm Estimated weight is 2540 g, 20th percentile. IMPRESSION: 1. Single living intrauterine gestation with gestational age 36 weeks 1 day based on established due date 06/08/2025. 2. Estimated weight at the 20th percentile 3. Short femur at the 2nd percentile 4. Normal amniotic fluid volume. 5. No placenta previa Electronically signed by: Sanaz Abreu MD 05/12/2025 3:27 PM, [facility]. Reported on: [id number] Maury Reagan MD RIS US ORDERABLES Final Result * Protein, 24 Hr Urine (04/21/2025 9:02 AM PST) Pathologist [facility] Protein, Total, 24 Hr Ur NOTE <150 mg/24 h [facility] Comment: THE PROTEIN VALUE IS LESS THAN 4 MG/DL THEREFORE WE ARE UNABLE TO CALCULATE EXCRETION AND/OR CREATININE RATIO. TOTAL URINE VOLUME: 5600/24 REPORT COMMENT: FASTING:NO Test Performed at: [facility] [employer] [address] [place] [phone] DIONNE BURGESS MD Default Specimen VOIDED URINE SPECIMEN / Unknown 04/21/2025 9:02 AM PST 04/21/2025 9:04 AM PST Narrative Resulting Agency Comment Performing Organization Information: Site ID: NW Name: [facility] Address: [address] [place] [address] [employer] [address] Director: DIONNE BURGESS MD Maury Reagan MD URINE ORDERABLES Final Result [facility] [phone] * Glucose Deidre, 3 Hr, Gestational DM 100gm (03/10/2025 8:59 AM PDT) Glucose, Fasting 82 65 - 94 mg/dL [facility] Glucose, 1 Hour 152 <180 mg/dL [facility] Glucose, 2 Hour 117 <155 mg/dL [facility] Glucose, 3 Hour 108 <140 mg/dL [facility] Comment: See Below [facility] Comment: Bailey/Coustan Criteria: Two or more values greater than the above reference intervals are suggestive of gestational diabetes. REPORT COMMENT: FASTING:YES Test Performed at: [facility] [employer] [address] [place] [phone] DIONNE BURGESS MD Default Specimen 03/10/2025 8:59 AM PDT 03/10/2025 9:00 AM PDT Narrative Resulting Agency Comment Performing Organization Information: Site ID: NW Name: [facility] Address: [address] [place] [address] Director: DIONNE BURGESS MD Maury Reagan MD LAB BLOOD ORDERABLES Final Resul t [facility] [phone] * (ABNORMAL) CBC with Differential, Reflex to Ferritin (CUSTOM) MCPB OB (03/07/2025 8:57 AM PDT) White Blood Cell Count 9.0 3.8 - 10.8 Thousand/u L [facility] Red Blood Cell Count 3.80 3.80 - 5.10 Million/uL [facility] Hemoglobin 11.3(L) 11.7 - 15.5 g/dL [facility] Hematocrit 35.0 35.0 - 45.0 % [facility] MCV 92.1 80.0 - 100.0 fL [facility] MCH 29.7 27.0 - 33.0 pg [facility] MCHC 32.3 32.0 - 36.0 g/dL [facility] Comment: For adults, a slight decrease in the calculated MCHC value (in the range of 30 to 32 g/dL) is most likely not clinically significant; however, it should be interpreted with caution in correlation with other red cell parameters and the patient's clinical condition. RDW 13.0 11.0 - 15.0 % [facility] Platelet Count 265 140 - 400 Thousand/u L [facility] MPV 10.3 7.5 - 12.5 fL [facility] Absolute Neutrophils 6705 1500 - 7800 cells/uL [facility] Absolute Lymphocytes 1611 850 - 3900 cells/uL [facility] Absolute Monocytes 504 200 - 950 cells/uL [facility] Absolute Eosinophils 144 15 - 500 cells/uL [facility] Absolute Basophils 36 0 - 200 cells/uL [facility] Neutrophils % 74.5 % [facility] Lymphocytes % 17.9 % [facility] Monocytes % 5.6 % [facility] Eosinophils % 1.6 % [facility] Basophils % 0.4 % [facility] Comment: Test Performed at: [facility] [place] [address] DIONNE BURGESS MD Default Specimen 03/07/2025 8:57 AM PDT 03/07/2025 8:57 AM PDT Narrative Resulting Agency Comment Performing Organization Information: Site ID: NW Name: [facility] Address: [address] [place] [address] [place] [phone] Director: DIONNE BURGESS MD us Maury Reagan MD LAB BLOOD ORDERABLES Final Resul t Performing Organization Address [facility] de Phone Number [facility] [phone] * (ABNORMAL) Glucose, Gestational Screen (50g)-135 Cutoff (03/07/2025 8:57 AM PDT) Glucose, Gestational Screen (50G)-135 Cutoff 137(H) <135 mg/dL [facility] Comment: One hour value of > or = 135 mg/dL indicates the need for a diagnostic 75 g dose 2-hour or 100 g dose 3-hour oral glucose tolerance test; patient fasting is required. Test Performed at: [facility] [place] [phone] DIONNE BURGESS MD Default Specimen 03/07/2025 8:57 AM PDT 03/07/2025 8:57 AM PDT Narrative Resulting Agency Comment Performing Organization Information: Site ID: NW Name: [facility] Address: [address] [place] [address] [place] [phone] Director: DIONNE BURGESS MD us Maury Reagan MD LAB BLOOD ORDERABLES Final Resul t Performing Organization Address [facility] de Phone Number [facility] [phone] * RPR Diagnostic, Initial: Syphilis Antibody Cascading Reflex (03/07/2025 8:57 AM PDT) T. pallidum Ab, EIA NEGATIVE [facility] Comment: Reference range: Negative No antibodies to T. pallidum (the agent causing syphilis) were detected in the specimen. This result, however, does not exclude very recent T. pallidum infection; testing of a second specimen, collected 2-4 weeks after this specimen, is recommended if the index of suspicion for recent infection is high. Test Performed at: [facility] [address] [phone] ALEX KEITH MD,PHD,SOLITARIO Default Specimen 03/07/2025 8:57 AM PDT 03/07/2025 8:57 AM PDT Narrative Resulting Agency Comment Performing Organization Information: Site ID: [id number] Name: [facility] Address: [address] [place] [phone] Director: ALEX KEITH MD,PHD,SOLITARIO us Maury Reagan MD LAB BLOOD ORDERABLES Final Resul t [facility] [phone] * Hepatitis C Virus Antibody (Screening), reflex to HCV,RNA Quant PCR (10/30/2024 10:23 AM PDT) Anti-HCV NON-REACTI VE NON-REACT SHANNAN [facility] Comment: HCV antibody was non-reactive. There is no laboratory evidence of HCV infection. In most cases, no further action is required. However, if recent HCV exposure is suspected, a test for HCV RNA (test code 28796) is suggested. For additional information please refer to http://education.BumpTop/faq/YZD68r7 (This link is being provided for informational/ educational purposes only.) Test Performed at: [facility] [facility] [address] [place] [phone] DIONNE BURGESS MD Default Specimen 10/30/2024 10:23 AM PDT 10/30/2024 10:24 AM PDT Narrative Resulting Agency Comment Performing Organization Information: Site ID: NW Name: [facility] Address: [address] [place], [place] [address] [place] [phone] Director: DIONNE BURGESS MD us Maury Reagan MD LAB BLOOD ORDERABLES Final Resul t Performing Organization Address [facility] Co de Phone Number [facility] [phone] * HIV Ag/Ab (4th Gen) EIA, Reflex to Confirmation (HIV Screening) (10/30/2024 10:23 AM PDT) HIV Ag/Ab, 4th Gen NON-REACT SHANNAN NON-REACT SHANNAN [facility] Comment: HIV-1 antigen and HIV-1/HIV-2 antibodies were not detected. There is no laboratory evidence of HIV infection. PLEASE NOTE: This information has been disclosed to you from records whose confidentiality may be protected by state law. If your state requires such protection, then the state law prohibits you from making any further disclosure of the information without the specific written consent of the person to whom it pertains, or as otherwise permitted by law. A general authorization for the release of medical or other information is NOT sufficient for this purpose. For additional information please refer to http://education.BumpTop/faq/LAN440 (This link is being provided for informational/ educational purposes only.) The performance of this assay has not been clinically validated in patients less than 2 years old. Test Performed at: [facility] [employer] [phone] DIONNE BURGESS MD Default Specimen 10/30/2024 10:23 AM PDT 10/30/2024 10:24 AM PDT Narrative Resulting Agency Comment Performing Organization Information: Site ID: NW Name: [facility] Address: [address] [place] [phone] Director: DIONNE BURGESS MD Maury Reagan MD LAB BLOOD ORDERABLES Final Resul t Performing Organization Address [facility] Co de Phone Number [facility] [phone] * PAP, and HPV (Reflex to 16,18/45 Genotyping) (07/16/2024 2:40 PM PST) Clinical Information: [facility] Comment:Information not prov ided LMP: [facility] Comment:04/21/2024 Prev. Pap: [facility] Comment:NONE GIVEN Prev. Bx: [facility] Comment:NONE GIVEN Source: [facility] Comment:Cervix Statement of Adequacy: [facility] Comment: Satisfactory for evaluation. Endocervical/transformation zone component absent. Interpretation/Res ult: [facility] Comment: Cytology Results: Negative for intraepithelial lesion or malignancy. Comment: [facility] Comment: This Pap test has been evaluated with computer assisted technology. Floor Nurse: AGUEDA Simms Comment: KAC, CT(ASCP) CT Screening Location: [place] [address] See Note [facility] Comment: EXPLANATORY NOTE: The Pap is a screening test for cervical cancer. It is not a diagnostic test and is subject to false negative and false positive results. It is most reliable when a satisfactory sample, regularly obtained, is submitted with relevant clinical findings and history, and when the Pap result is evaluated along with historic and current clinical information. HPV mRNA E6/E7 Not Detected Not Detected [facility] Comment: Methodology: Bulk Clerk-Mediated Amplification This assay detects E6/E7 viral messenger RNA (mRNA) from 14 high-risk HPV types (16,18,31,33,35,39,45,51,52,56,58,59,66,68). Cervical sources are required for HPV testing. If a vaginal source from a patient who has had a total hysterectomy with removal of cervix was submitted, please contact the testing laboratory for alternative testing options. For additional information, please refer to http://education.BumpTop/faq/PPB594d9 (This link if provided for information/ educational purposes only.) Test Performed at: [facility] [place] [id number] [phone] MELLY BROWN MD Default Specimen SPECIMEN FROM UTERINE CERVIX / Unknown 07/16/2024 2:40 PM PST 07/17/2024 9:31 AM PST Narrative Resulting Agency Comment Performing Organization Information: Site ID: [id number] Name: [facility] [address] Address: [address] [place] [phone] Director: MELLY BROWN MD us Maury Reagan MD PATHOLOGY ORDERABLES Final Resul t Performing Organization Address City/State/ZIP [place] Phone Number [facility] [phone] from Last 3 Months or Most Recently Relevant to Health Maintenance Insurance [facility] Advance Directives * Full Code (Latest Code Status on File) Date Activated Date Inactivated Comments 11/03/2022 8:39 AM 11/03/2022 2:45 PM Care Teams Hydrant Setter Relationship Specialty Start Date End Date Елена Carbone MD [address] [place] [address] PCP - Patient Reported PCP [facility] [facility] 04/30/25
--- NOTE | 2025-05-27 04:55 | PM.OBDS.1 ---
Discharge Providers Provider Date of admission: 05/25/25 20:00 Discharge Date: 05/27/25 Primary care physician: Zoraida MEAD Provider Consults: 05/26/25 02:19 Consult to Site Foreman Routine Comment: Discharge provider: Meagan Mendez MD Summary Hospital Course Date Patient Seen: 05/27/25 Diagnoses: Intrauterine at 38w1d Hyperthyroidism GBS negative RH positive Hx of prior Hospital Course: The pt presented in active labor. She had SROM with meconium-stained fluid. She had an epidural for pain control. She progressed to complete and had an of a viable baby girl without complications. , there were no complications. At the time of discharge she was voiding, ambulating, and passing flatus without difficulty. Her lochia was decreasing appropriately. Her pain was well controlled. She was with good latch. She will f/u in 6 weeks for check. Peripartum Data Delivery Method: Natural Vaginal Laceration Description: Vaginal - 1st Degree Episiotomy description: None Procedures: Spontaneous vaginal delivery complications: none [place] 1: Gender: Female Disposition of : home Time Spent with Patient Time attestation: Total time spent providing and/or coordinating discharge services: Objective Labs 05/26/25 05:50 Labs: Laboratory Results - last 24 hr 05/26/25 05:50 WBC 18.7 H D RBC 3.99 L Hgb 12.1 Hct 35.6 L MCV 89.3 MCH 30.2 MCHC 33.9 RDW 14.1 Plt Count 193 Neut % (Auto) 79.6 H Lymph % (Auto) 12.9 L [place] % (Auto) 6.8 Eos % (Auto) 0.0 L Baso % (Auto) 0.7 Neut # (Auto) 74551 H Lymph # (Auto) 2400 [place] # (Auto) 1300 H Eos # (Auto) 0 Baso # (Auto) 100 Exam Narrative Exam Narrative: Gen: NAD, sitting comfortably in bed, appears well CV: RRR, no murmurs Resp: clear to auscultation bilaterally Abd: soft, appropriately tender, fundus firm and below the umbilicus, nondistended Ext: no edema Discharge Plan Discharge Plan Patient Disposition: Home Discharge orders & Medications Prescriptions: New sennosides [senna] 8.6 mg Tablet 17.2 mg PO BEDTIME PRN (Reason: Constipation) Qty: 15 0RF acetaminophen 325 mg Tablet 650 mg PO Q6H PRN (Reason: Pain, Mild (1-3)) Qty: 60 0RF methimazole 10 mg Tablet 7.5 mg PO DAILY Qty: 30 0RF Continued M-Bari Plus 27 mg iron- 1 mg tablet 1 tab PO DAILY valacyclovir 1 gram tablet 1,000 mg PO TID Qty: 21 0RF artificial tears with lanolin Ointment 1 applic EYE-LEFT BEDTIME Qty: 3.5 0RF Discontinued Zantac 150 mg tablet PO QDAY Qty: 0 ondansetron 8 mg tablet,disintegrating 8 mg PO 3XD methimazole 10 mg tablet 10 mg PO DAILY methylprednisolone [Medrol (Ramirez)] 4 mg tablets,dose pack See Rx Instructions .ROUTE .COMPLEX Qty: 21 0RF Rx Instructions: orally per package directions Follow up/Referrals: ProviderZoraida [Primary Care Provider, Family Practice] Diet/Activity/Treatments Diet: Diet as Tolerated and Regular Skin/Wound/Dressing Care Report to your healthcare provider any signs of infection, such as:: chills, fever, increased pain and unusual drainage Visit Report/Discharge Packet Instructions: DI for Labor and Delivery, Vaginal Stand Alone Forms: [employer], Patient Portal/API, Stroke Signs & Symptoms, Influenza Vaccine Info, Notice of Privacy Practices, Inpatient vs Outpatient, Pneumococcal Vaccine Info, Pt. Rights & Responsibilities Discharge Data Primary Care Provider: Zoraida Gallegos
== END 2025-05-27 09:50 | disposition home or self-care (01) | DRG 807 ==
PROVIDERS: Admitting Provider Family Medicine; Family Provider General Practice; Referring Provider Family Medicine; Visit Provider Family Medicine
DX: O99.284 Endocrine, nutritional and metabolic diseases complicating childbirth (principal); Z37.0 Single live birth; O71.4 Obstetric high vaginal laceration alone; O34.211 Maternal care for low transverse scar from previous cesarean delivery; Z3A.38 38 weeks gestation of pregnancy; G51.0 Bell's palsy; O99.353 Diseases of the nervous system complicating pregnancy, third trimester
CPT/HCPCS: 36415; 59050; 85025; 86850; 86900; 86901; A9270; G0379; J3010; J7050; J7120; S0191